=== PATIENT | female | born 1960 | race Two or more races ===

== ENCOUNTER 2020-06-12 10:15 | Emergency (ER) | payer MEDICAID ==
[~2020-06-12] VITALS: Ht 170.2 cm; Wt 95.3 kg
[~2020-06-12 10:15] MED LIST: ESOM40CA PO
--- NOTE | 2020-06-12 10:53 | NUR ---
Dr Valente seen and examined the pt.
[2020-06-12] MEDS ORDERED: IV NORMAL SALINE 1000 ML BAG IV ONE (11:00)
[2020-06-12] MEDS ORDERED: ONDANSETRON 4 MG/2 ML VIAL ONE (11:16)
[2020-06-12 11:17] LABS: BASOPHILS % (AUTO) 0.2 % (0.0-2.0); HEMATOCRIT 49.4 % (31.2-41.9); HEMOGLOBIN 16.8 g/dL (10.9-14.3); LYMPHOCYTES # (AUTO) 0.6 K/uL (20.0-40.0); LYMPHOCYTES % (AUTO) 4.8 % (20.5-51.5); MEAN CORPUSCULAR HEMOGLOBIN 28.2 uug (24.7-32.8); MEAN CORPUSCULAR HGB CONC 34 g/dL (32.3-35.6); MEAN CORPUSCULAR VOLUME 82.8 fL (75.5-95.3); MONOCYTES # (AUTO) 0.9 K/uL (2.0-10.0); MONOCYTES % (AUTO) 7.9 % (0.0-11.0); NEUTROPHILS # (AUTO) 10.1 K/uL (1.8-8.9); NEUTROPHILS % (AUTO) 87.1 % (38.5-71.5); PLATELET COUNT (AUTO) 287 K/uL (179-408); RED BLOOD CELL COUNT(AUTO) 5.96 MIL/uL (3.63-4.92); WHITE BLOOD COUNT (AUTO) 11.6 K/uL (3.8-11.8)
[2020-06-12] MEDS ORDERED: IV NORMAL SALINE 250 ML IV ONE (11:17)
[2020-06-12] MEDS ORDERED: IOHEXOL 300MG/ML 100 ML INFUS..BTL ONE (11:17)
[2020-06-12] MEDS ORDERED: SWABABLE VALVE TRANSFER SET EA MC ONE (11:17)
[2020-06-12 11:24] LABS: CARBON DIOXIDE 27 mmol/L (21-32); CHLORIDE 106 mmol/L (98-107); CREATININE 1.4 mg/dL (0.6-1.3); GLUCOSE 173 mg/dL (74-106); POTASSIUM 4.1 mmol/L (3.5-5.1); UREA NITROGEN, BLOOD 23 mg/dL (7-18)
[2020-06-12 11:30] LABS: ALANINE AMINOTRANSFERASE 32 U/L (14-59); ALKALINE PHOSPHATASE 108 U/L (50-136); ASPARTATE AMINOTRANSFERASE 20 U/L (15-37); BILIRUBIN,DIRECT 0.2 mg/dL (0.0-0.2); BILIRUBIN,TOTAL 1.3 mg/dL (0.2-1.0); LIPASE 66 U/L (73-393)
[2020-06-12] MEDS ORDERED: ONDANSETRON 4 MG/2 ML VIAL IV ONE (11:45)
--- NOTE | 2020-06-12 13:04 | NUR ---
Pt able to tolorate fluids. Pt states no longer has nausea.
--- NOTE | 2020-06-12 14:12 | NUR ---
Pt able to tolorate PO intake, denies N/V.
[2020-06-12] MEDS ORDERED: IPRATROPIUM BROMIDE 0.5 MG/2.5 ML NEBU NEB ONE (14:15)
[2020-06-12] MEDS ORDERED: ALBUTEROL SULFATE 2.5 MG/3 ML NEBU NEB ONE (14:15)
--- NOTE | 2020-06-12 14:35 | NUR ---
RT at bedside for bxtx.
[2020-06-12] MEDS ORDERED: ALBUTEROL SULFATE 2.5 MG/3 ML NEBU ONE (14:39)
[2020-06-12] MEDS ORDERED: IPRATROPIUM BROMIDE 0.5 MG/2.5 ML NEBU ONE (14:39)
--- NOTE | 2020-06-12 14:53 | NUR ---
Patient discharged to home in stable condition. Written and verbal after care instructions given. Patient verbalizes understanding of instructions. Stressed follow up or return to ER for worsening s/s. IV removed. Catheter intact and site benign. Pressure and 4x4 gauze applied to site. No bleeding noted.
[2020-06-12 14:54] VITALS: BP 132/79
== END 2020-06-12 15:04 | disposition home or self-care (01) ==
LOC: ER 10:15
DX: A04.9 Bacterial intestinal infection, unspecified (principal); J44.9 Chronic obstructive pulmonary disease, unspecified; Z90.49 Acquired absence of other specified parts of digestive tract; K57.30 Diverticulosis of large intestine without perforation or abscess without bleeding; E66.9 Obesity, unspecified; Z68.32 Body mass index [BMI] 32.0-32.9, adult; G62.9 Polyneuropathy, unspecified; Z88.6 Allergy status to analgesic agent; Z88.5 Allergy status to narcotic agent; Z88.0 Allergy status to penicillin; Z88.2 Allergy status to sulfonamides; R00.0 Tachycardia, unspecified; K21.9 Gastro-esophageal reflux disease without esophagitis; K44.9 Diaphragmatic hernia without obstruction or gangrene
CPT/HCPCS: 71045; 74177; 80048; 80076; 82140; 83690; 84484; 85025; 85730; 93005; 94640; 96361; 96374; 99285; J2405; Q9967; 36415; 70030-TC; A4663; J3590; J7030; J7050

== ENCOUNTER 2021-02-15 09:27 | Emergency (ER) | payer MEDICAID ==
[~2021-02-15] VITALS: Ht 170.2 cm; Wt 117.0 kg
--- NOTE | 2021-02-15 10:50 | NUR ---
Patient discharged to home in stable condition. Written and verbal after care instructions given. Patient verbalizes understanding of instructions. Stressed follow up or return to ER for worsening s/s.pt using crutches, walks in steady gait.
== END 2021-02-15 10:51 | disposition home or self-care (01) ==
LOC: ER 09:28
DX: M25.562 Pain in left knee (principal); S89.92XA Unspecified injury of left lower leg, initial encounter; W19.XXXA Unspecified fall, initial encounter; Y92.89 Other specified places as the place of occurrence of the external cause; Z88.6 Allergy status to analgesic agent; Z88.1 Allergy status to other antibiotic agents; Z88.5 Allergy status to narcotic agent; Z88.0 Allergy status to penicillin; Z88.2 Allergy status to sulfonamides; E66.9 Obesity, unspecified; Z68.41 Body mass index [BMI] 40.0-44.9, adult; J44.9 Chronic obstructive pulmonary disease, unspecified; G62.9 Polyneuropathy, unspecified
CPT/HCPCS: A4663

== ENCOUNTER 2021-03-31 12:17 | Emergency (ER) | payer MEDICAID ==
[~2021-03-31] VITALS: Ht 170.2 cm; Wt 126.1 kg
--- NOTE | 2021-03-31 12:56 | NUR ---
[email or web address], medical screening exam in progress
[2021-03-31] MEDS ORDERED: IPRATROPIUM BROMIDE 0.5 MG/2.5 ML NEBU NEB ONE (13:00)
[2021-03-31] MEDS ORDERED: ALBUTEROL SULFATE 2.5 MG/3 ML NEBU NEB ONE (13:00)
[2021-03-31] MEDS ORDERED: ACETAMINOPHEN 325 MG TABLET PO ONE (13:00)
[2021-03-31] MEDS ORDERED: ACETAMINOPHEN 325 MG TABLET ONE (13:23)
--- NOTE | 2021-03-31 13:56 | NUR ---
For discharge, pending discharge papers from MD@this time.
--- NOTE | 2021-03-31 14:10 | NUR ---
Patient discharged to home in stable condition with steady gait. Written and verbal after care instructions given.Patient verbalized understanding & compliance of instructions. Stressed follow up with primary doctor or return to ER for worsening s/s. PATIENT IS PAIN FREE AT THIS TIME.
[2021-03-31] MEDS ORDERED: NEOMY/BACITRA/POLYMYXIN B OINT UD PACKET TP ONE ×2 (14:11→14:15)
== END 2021-03-31 14:11 | disposition home or self-care (01) ==
LOC: ER 12:18
DX: R07.89 Other chest pain (principal); S20.01XA Contusion of right breast, initial encounter; W22.8XXA Striking against or struck by other objects, initial encounter; Y92.89 Other specified places as the place of occurrence of the external cause; E66.9 Obesity, unspecified; Z68.41 Body mass index [BMI] 40.0-44.9, adult; J44.9 Chronic obstructive pulmonary disease, unspecified; G62.9 Polyneuropathy, unspecified; Z88.5 Allergy status to narcotic agent; Z88.0 Allergy status to penicillin; Z88.2 Allergy status to sulfonamides; R03.0 Elevated blood-pressure reading, without diagnosis of hypertension
CPT/HCPCS: 71045; 93005; 94640; A4663

== ENCOUNTER 2021-06-11 11:55 | Emergency (ER) | payer MEDICAID ==
[~2021-06-11] VITALS: Ht 170.2 cm; Wt 126.1 kg
[2021-06-11] MEDS ORDERED: IV NORMAL SALINE 1000 ML BAG IV ONE (13:00)
[2021-06-11] MEDS ORDERED: ONDANSETRON 4 MG/2 ML VIAL IV ONE (13:00)
[2021-06-11 13:19] LABS: HEMATOCRIT 43.4 % (31.2-41.9); MEAN CORPUSCULAR HEMOGLOBIN 27.9 uug (24.7-32.8); MEAN CORPUSCULAR VOLUME 82.4 fL (75.5-95.3); PLATELET COUNT (AUTO) 253 K/uL (179-408)
[2021-06-11] MEDS ORDERED: ONDANSETRON 4 MG/2 ML VIAL ONE (13:24)
[2021-06-11 13:32] LABS: BILIRUBIN,DIRECT 0.1 mg/dL (0.0-0.2); BILIRUBIN,TOTAL 0.5 mg/dL (0.2-1.0); CREATININE 0.9 mg/dL (0.6-1.3); TOTAL PROTEIN, SERUM 6.9 g/dL (6.4-8.2)
--- NOTE | 2021-06-11 13:51 | NUR ---
Pt denies any adverse reaction from medication. States improvement with nausea.
[2021-06-11] MEDS ORDERED: ALBUTEROL SULFATE 2.5 MG/3 ML NEBU NEB ONE (14:00)
[2021-06-11] MEDS ORDERED: ALBUTEROL SULFATE 2.5 MG/3 ML NEBU ONE (14:17)
[2021-06-11] MEDS ORDERED: ONDA4TAB5 PO (14:59)
--- NOTE | 2021-06-11 15:02 | NUR ---
Pt states improvement in S/S from CC. VSS
--- NOTE | 2021-06-11 15:12 | NUR ---
Saline lock D/C, clear and intact. Patient discharged to home in stable condition. Written and verbal after care instructions given. Patient verbalizes understanding of instructions. Stressed follow up or return to ER for worsening s/s.
[2021-06-11 15:15] VITALS: BP 146/79
== END 2021-06-11 15:12 | disposition home or self-care (01) ==
LOC: ER 11:57
DX: K21.00 Gastro-esophageal reflux disease with esophagitis, without bleeding (principal); G62.9 Polyneuropathy, unspecified; E66.9 Obesity, unspecified; Z68.41 Body mass index [BMI] 40.0-44.9, adult; J44.9 Chronic obstructive pulmonary disease, unspecified; K50.90 Crohn's disease, unspecified, without complications; Z90.49 Acquired absence of other specified parts of digestive tract
CPT/HCPCS: 36415; 80048; 80076; 83690; 84484; 85025; 93005; 94640; 96361; 96374; 99284; J2405; 70030-TC; A4663; J7030

== ENCOUNTER 2021-12-01 13:52 | Emergency (ER) | payer MEDICAID ==
[~2021-12-01] VITALS: Ht 170.2 cm; Wt 117.0 kg
[~2021-12-01 13:52] MED LIST changes: +ONDA4TAB5 PO
[2021-12-01] MEDS ORDERED: ALBUTEROL SULFATE 2.5 MG/3 ML NEBU NEB ONE (16:15)
[2021-12-01] MEDS ORDERED: ALBUTEROL SULFATE 2.5 MG/3 ML NEBU ONE (16:17)
[2021-12-01 16:20] LABS: ALANINE AMINOTRANSFERASE 30 U/L (14-59); ALKALINE PHOSPHATASE 100 U/L (50-136); ASPARTATE AMINOTRANSFERASE 18 U/L (15-37); BILIRUBIN,DIRECT 0.1 mg/dL (0.0-0.2); BILIRUBIN,TOTAL 0.5 mg/dL (0.2-1.0); CARBON DIOXIDE 27 mmol/L (21-32); CHLORIDE 105 mmol/L (98-107); CREATININE 0.8 mg/dL (0.6-1.3); GLUCOSE 116 mg/dL (74-106); POTASSIUM 4.5 mmol/L (3.5-5.1); UREA NITROGEN, BLOOD 13 mg/dL (7-18)
[2021-12-01 16:49] VITALS: BP 126/80
== END 2021-12-01 16:49 | disposition home or self-care (01) ==
LOC: ER 13:54
DX: S40.011A Contusion of right shoulder, initial encounter (principal); S20.219A Contusion of unspecified front wall of thorax, initial encounter; W01.0XXA Fall on same level from slipping, tripping and stumbling without subsequent striking against object, initial encounter; Y92.89 Other specified places as the place of occurrence of the external cause; M23.91 Unspecified internal derangement of right knee; S89.91XA Unspecified injury of right lower leg, initial encounter; Z90.49 Acquired absence of other specified parts of digestive tract; K44.9 Diaphragmatic hernia without obstruction or gangrene; J44.9 Chronic obstructive pulmonary disease, unspecified; G62.9 Polyneuropathy, unspecified; K21.9 Gastro-esophageal reflux disease without esophagitis; E66.9 Obesity, unspecified; Z68.41 Body mass index [BMI] 40.0-44.9, adult; Z88.6 Allergy status to analgesic agent; Z88.0 Allergy status to penicillin; Z88.2 Allergy status to sulfonamides; Z88.8 Allergy status to other drugs, medicaments and biological substances
CPT/HCPCS: 36415; 71250; 73030; 84484; 85730; 86803; 87806; 93005; A4663

== ENCOUNTER 2022-02-09 16:55 | Emergency (ER) | payer MEDICAID ==
[~2022-02-09] VITALS: Ht 172.7 cm; Wt 117.9 kg
[2022-02-09] MEDS ORDERED: IV NORMAL SALINE 1000 ML BAG IV ONE (18:00)
[2022-02-09] MEDS ORDERED: DEXAMETHASONE SOD PHOSPHATE 4 MG INJ IV ONE (18:00)
[2022-02-09 18:54] LABS: HEMATOCRIT 44.1 % (31.2-41.9); MEAN CORPUSCULAR HEMOGLOBIN 27.6 uug (24.7-32.8); MEAN CORPUSCULAR VOLUME 82.5 fL (75.5-95.3); PLATELET COUNT (AUTO) 245 K/uL (179-408)
[2022-02-09 19:04] LABS: ALANINE AMINOTRANSFERASE 28 U/L (14-59); ALKALINE PHOSPHATASE 101 U/L (50-136); ASPARTATE AMINOTRANSFERASE 6 U/L (15-37); BILIRUBIN,DIRECT 0.1 mg/dL (0.0-0.2); BILIRUBIN,TOTAL 0.5 mg/dL (0.2-1.0); CARBON DIOXIDE 29 mmol/L (21-32); CHLORIDE 102 mmol/L (98-107); GLUCOSE 111 mg/dL (74-106); POTASSIUM 3.8 mmol/L (3.5-5.1); TOTAL PROTEIN, SERUM 7.1 g/dL (6.4-8.2); UREA NITROGEN, BLOOD 17 mg/dL (7-18)
[2022-02-09] MEDS ORDERED: DEXAMETHASONE SOD PHOSPHATE 10 MG INJ ONE (19:28)
--- NOTE | 2022-02-09 19:30 | NUR ---
Assumed care of patient from day shift nurse.
[2022-02-09] MEDS ORDERED: TRAMADOL PO (19:48)
--- NOTE | 2022-02-09 20:10 | NUR ---
Dr. Grimm at bedside.
[2022-02-09] MEDS ORDERED: TRAM50TA2 PO (20:24)
[2022-02-09] MEDS ORDERED: TRAMADOL HCL 50 MG TABLET ONE (20:36)
--- NOTE | 2022-02-09 20:40 | NUR ---
Patient discharged to home in stable condition. Written and verbal after care instructions given. Patient verbalizes understanding of instructions. Stressed follow up or return to ER for worsening s/s. Patient ambulated from the ER with steady gait. All belongings with patient.
[2022-02-09 21:33] VITALS: BP 148/74
[2022-02-09] MEDS ORDERED: TRAMADOL HCL 50 MG TABLET PO ONE (22:00)
== END 2022-02-09 20:40 | disposition home or self-care (01) ==
LOC: ER 16:55
DX: L56.2 Photocontact dermatitis [berloque dermatitis] (principal); Z88.0 Allergy status to penicillin; Z88.2 Allergy status to sulfonamides; Z88.8 Allergy status to other drugs, medicaments and biological substances; E66.01 Morbid (severe) obesity due to excess calories; Z68.39 Body mass index [BMI] 39.0-39.9, adult; G62.9 Polyneuropathy, unspecified; J44.9 Chronic obstructive pulmonary disease, unspecified; Z87.891 Personal history of nicotine dependence; G89.29 Other chronic pain; M54.9 Dorsalgia, unspecified
CPT/HCPCS: 36415; 71045; 80048; 80076; 82607; 83605; 83735; 84145; 84484; 85025; 85730; 87040 ×2; 93005; 96361; 96374; 99285; J1100; J7040; A4663

== ENCOUNTER 2022-02-14 21:37 | Inpatient (IN) | payer MEDICAID ==
[~2022-02-14] VITALS: Ht 170.2 cm; Wt 117.9 kg
[~2022-02-14 21:37] MED LIST changes: +TRAM50TA2 PO; +TRAMADOL PO
--- NOTE | 2022-02-14 21:50 | NUR ---
pt c/o generalized skin rash was seen here on february 09 with same coomplaint.
[2022-02-14] MEDS ORDERED: HYDROMORPHONE HCL 2 MG TABLET PO ONE (22:00)
[2022-02-14] MEDS ORDERED: ONDANSETRON ODT 4 MG TAB.RAPDIS SL ONE (22:00)
[2022-02-14] MEDS ORDERED: ONDANSETRON ODT 4 MG TAB.RAPDIS ONE (22:13)
[2022-02-14] MEDS ORDERED: TRIA15CR2 TP (22:13)
[2022-02-14] MEDS ORDERED: CIPR-262 PO (22:13)
[2022-02-14] MEDS ORDERED: lidocaine TOP (22:13)
[2022-02-14] MEDS ORDERED: PRED20TA PO (22:13)
[2022-02-14] MEDS ORDERED: HYDROMORPHONE HCL 2 MG TABLET ONE (22:13)
--- NOTE | 2022-02-14 22:17 | NUR ---
epic panel doctor was called and Dr. Carreno has spoken with Bhavesh Montenegro.
--- NOTE | 2022-02-14 22:25 | NUR ---
Dr. Carreno states pt will be admitted, he states it is ok for no iv access pt has poor venous access. Call placed to Bhavesh Montenegro to inform of this and determine if he wants to have a midline placed.
[2022-02-14 22:49] LABS: HEMATOCRIT 43.9 % (31.2-41.9); MEAN CORPUSCULAR HEMOGLOBIN 27.8 uug (24.7-32.8); MEAN CORPUSCULAR VOLUME 82.9 fL (75.5-95.3); PLATELET COUNT (AUTO) 258 K/uL (179-408)
[2022-02-14 22:52] LABS: POTASSIUM 4.1 mmol/L (3.5-5.1)
[2022-02-14 22:58] LABS: BILIRUBIN,TOTAL 0.9 mg/dL (0.2-1.0); TOTAL PROTEIN, SERUM 7.2 g/dL (6.4-8.2)
--- NOTE | 2022-02-14 23:07 | NUR ---
spoke with Bhavesh Montenegro he is aware that the pt does not have an iv access and is difficult to find venous access he is ok without iv access and states will order for midline tomorrow.
[2022-02-14] MEDS ORDERED: MAGNESIUM HYDROXIDE 30 ML LIQUID UDC PO PRN (23:30)
[2022-02-14] MEDS ORDERED: methylPREDNISolone SOD SUCC 125 MG/2 ML VIAL IM ONE (23:30)
[2022-02-14] MEDS ORDERED: REMEDY ESSENTIAL ZINC PASTE 113 GM TP PRN (23:30)
--- NOTE | 2022-02-14 23:47 | NUR ---
housekeeping director is made aware that the pt is waiting for a bed, I would be told if one is available.
--- NOTE | 2022-02-15 01:28 | NUR ---
report given to Shereen MARIA.
[2022-02-15 02:11] VITALS: BP 152/96
--- NOTE | 2022-02-15 02:17 | NUR ---
pt transported to room 329a via [facility] with all belongings CANDACE Regan at bedside to receive the pt.
[2022-02-15] MEDS ORDERED: methylPREDNISolone SOD SUCC 125 MG/2 ML VIAL IM ONE (03:00)
--- NOTE | 2022-02-15 03:00 | NUR ---
Received medsurg pt from ER via [facility] accompanied by CANDACE Frias. She is alert and oriented x4, able to make needs known, BRP but noted unsteady. Per report, no IV access d/t poor venous access. Dr. Carreno and Crow, HOOK TENDER aware. Initial and full body assessment done with pictures taken and placed in chart. Personal prescriptions put in a sealed bag signed by pt and will be given to pharmacy. All needs attended. Call light placed within reach, oriented to room. Safety precautions observed. Will continue to monitor.
[2022-02-15 04:43] VITALS: BP 148/90
[2022-02-15 06:31] VITALS: BP 139/84
--- NOTE | 2022-02-15 06:32 | NUR ---
No significant changes noted. All needs attended. Call light placed within reach. Will endorse to next shift for continuity of care.
[2022-02-15 06:49] LABS: MEAN CORPUSCULAR HEMOGLOBIN 27.9 uug (24.7-32.8); MEAN CORPUSCULAR VOLUME 82.2 fL (75.5-95.3); PLATELET COUNT (AUTO) 215 K/uL (179-408)
[2022-02-15 07:16] LABS: PHOSPHOROUS 2.5 mg/dL (2.5-4.9); POTASSIUM 4.4 mmol/L (3.5-5.1)
--- NOTE | 2022-02-15 08:54 | NUR ---
WOUND CARE CONSULT: PT PRESENTS WITH VERY DRY, RED SKIN CONDITION TO BILATERAL UPPER AND LOWER EXTREMITIES WELL SLIGHT REDNESS TO RT AND LEFT UPPER ABDOMINAL AREAS, PRESENT ON ADMISSION. NO DRAINAGE NOTED. PT REPORTS SKIN FEELING VERY TIGHT AND DRY. RECOMMENDATIONS MADE FOR SKIN PROTECTION. DISCUSSED WITH NURSING STAFF. MD IN AGREEMENT WITH PLAN OF CARE.
[2022-02-15] MEDS ORDERED: ESOM40CA PO (08:56)
[2022-02-15] MEDS ORDERED: TEMA30CA PO (08:56)
[2022-02-15] MEDS: MINERAL OIL/PETROLATUM,WHITE 57 GM TUBE TOP SCH (10:52)
[2022-02-15 11:57] VITALS: BP 148/82
[2022-02-15 16:02] VITALS: BP 148/83
[2022-02-15] MEDS: NEXIUM 40MG CAPSULE PO SCH (17:53)
--- NOTE | 2022-02-15 19:30 | NUR ---
Pt awake,alert and orientedx4. Pt in no acute distress. Pt have no iv access. Maria CROSSING FLAGMAN aware. Safety and comfort provided. Will continue to monitor.
[2022-02-15 20:24] VITALS: BP 148/85
[2022-02-16 04:27] VITALS: BP 125/70
[2022-02-16] MEDS: NEXIUM 40MG CAPSULE PO SCH (06:34)
--- NOTE | 2022-02-16 06:43 | NUR ---
Pt in no acute distress. Prescribed medication given and pt tolerated it well. Pt stable. Pt vital signs stable.Pt can make her needs known. Pt request to talk with [facility] [employer] [facility]. RN Called [facility] to come to her room. Will endorse to incoming nurse for continuity of care.
[2022-02-16] MEDS: MINERAL OIL/PETROLATUM,WHITE 57 GM TUBE TOP SCH (09:49)
[2022-02-16 11:55] VITALS: BP 145/80
[2022-02-16] MEDS ORDERED: MINE454C11 TOP (13:32)
[2022-02-16 16:17] VITALS: BP 141/76
--- NOTE | 2022-02-16 18:20 | NUR ---
Pt is discharged home. Was picked up by friend in private car. All discharge education given to pt, all personal belongings at hand. Returned all home medications to patient. Educated to follow up with PCP and assistant press operator. No IV access, ID band removed. Wound care completed, no signs of acute distress. Pt was wheeled down.
== END 2022-02-16 18:20 | disposition home or self-care (01) | DRG 385 ==
LOC: ER 21:37 → MEDSURG3 23:59
PROVIDERS: ADMIT Nurse Practitioner Acute Care; ATTEND Nurse Practitioner Acute Care
DX: L30.9 Dermatitis, unspecified (principal); E66.2 Morbid (severe) obesity with alveolar hypoventilation; F32.A Depression, unspecified; Z68.41 Body mass index [BMI] 40.0-44.9, adult; Z88.0 Allergy status to penicillin; Z88.2 Allergy status to sulfonamides; F41.9 Anxiety disorder, unspecified; G62.9 Polyneuropathy, unspecified; J44.9 Chronic obstructive pulmonary disease, unspecified; K21.9 Gastro-esophageal reflux disease without esophagitis; M54.12 Radiculopathy, cervical region; Z87.891 Personal history of nicotine dependence; M54.30 Sciatica, unspecified side; G89.4 Chronic pain syndrome; Z20.822 Contact with and (suspected) exposure to COVID-19
CPT/HCPCS: 36415; 83735; 84100; 85025; A4663; G0378; J2930; Q0162

== ENCOUNTER 2022-06-02 16:48 | Inpatient (IN) | payer MEDICAID ==
[~2022-06-02] VITALS: Ht 170.2 cm; Wt 115.7 kg
[~2022-06-02 16:48] MED LIST changes: +MINE454C11 TOP; -ONDA4TAB5 PO; +PRED20TA PO; +TEMA30CA PO; -TRAM50TA2 PO; -TRAMADOL PO
--- NOTE | 2022-06-02 17:15 | NUR ---
patient roomed, resting comfortably in bed and waiting for MD.
[2022-06-02] MEDS ORDERED: methylPREDNISolone SOD SUCC 125 MG/2 ML VIAL ONE (17:29)
[2022-06-02] MEDS ORDERED: methylPREDNISolone SOD SUCC 125 MG/2 ML VIAL IV ONE (17:30)
[2022-06-02 18:11] LABS: HEMATOCRIT 44.1 % (31.2-41.9); MEAN CORPUSCULAR HEMOGLOBIN 28.6 uug (24.7-32.8); MEAN CORPUSCULAR VOLUME 82.7 fL (75.5-95.3); PLATELET COUNT (AUTO) 262 K/uL (179-408)
[2022-06-02 18:17] LABS: CREATININE 1.1 mg/dL (0.6-1.3); POTASSIUM 3.9 mmol/L (3.5-5.1)
--- NOTE | 2022-06-02 18:41 | NUR ---
pt to be admitted to [facility] for rash, accepting MD Almaraz. no bed available at this time.
[2022-06-02 22:07] VITALS: BP 152/88
[2022-06-02] MEDS ORDERED: REMEDY ESSENTIAL ZINC PASTE 113 GM TP PRN (23:15)
[2022-06-02] MEDS ORDERED: ONDANSETRON 4 MG/2 ML VIAL IV PRN (23:15)
[2022-06-02] MEDS ORDERED: HYDROCODONE/APAP 10-325 MG TABLET PO PRN (23:15)
[2022-06-03] MEDS ORDERED: VANCOMYCIN IV 2,000 MG in IV DEXTROSE 5% 500 ML IV ONE (00:30)
--- NOTE | 2022-06-03 01:39 | NUR ---
Patient admitted to room 318 via ER per [facility] with diagnosis of Cellulitis bilateral lower extremities and wound color redness. AAOx4, no sob, no c/o pain noted.
[2022-06-03] MEDS ORDERED: VANCOMYCIN 1000 MG VIAL ONE ×2 (02:09→04:30)
[2022-06-03 04:00] VITALS: BP 149/78
[2022-06-03] MEDS ORDERED: VANCOMYCIN IV 200 ML ONE (04:30)
[2022-06-03] MEDS: methylPREDNISolone SOD SUCC 125 MG/2 ML VIAL IV SCH ×2 (05:08→15:01)
[2022-06-03] MEDS ORDERED: PANTOPRAZOLE SODIUM 40 MG TABLET.DR PO SCH (07:00)
[2022-06-03 07:15] LABS: HEMATOCRIT 44.6 % (31.2-41.9); MEAN CORPUSCULAR HEMOGLOBIN 28.5 uug (24.7-32.8); MEAN CORPUSCULAR VOLUME 83.7 fL (75.5-95.3); PLATELET COUNT (AUTO) 262 K/uL (179-408)
[2022-06-03 07:29] LABS: BILIRUBIN,TOTAL 0.6 mg/dL (0.2-1.0); MAGNESIUM 2.3 mg/dL (1.8-2.4); PHOSPHOROUS 3.7 mg/dL (2.5-4.9); POTASSIUM 4.2 mmol/L (3.5-5.1); TOTAL PROTEIN, SERUM 7.4 g/dL (6.4-8.2)
[2022-06-03] MEDS: ACETAMINOPHEN 325 MG TABLET PO PRN ×2 (08:00→19:20)
[2022-06-03] MEDS ORDERED: CLOTRIMAZOLE 1% CREAM 30 GM TUBE TOP SCH (09:00)
[2022-06-03] MEDS: TRAMADOL HCL 50 MG TABLET PO PRN (12:00)
--- NOTE | 2022-06-03 13:00 | NUR ---
Dr Tee here to see patient. New orders received and carried out.
[2022-06-03] MEDS ORDERED: KETOROLAC TROMETHAMINE 30 MG INJ IVP PRN (13:15)
[2022-06-03] MEDS ORDERED: LIDOCAINE HCL 1% 20 ML VIAL IJ PRN (13:15)
[2022-06-03] MEDS ORDERED: MICAFUNGIN SODIUM 100 MG in IV NORMAL SALINE 100 ML IV SCH (14:00)
[2022-06-03] MEDS: FLUCONAZOLE 200 MG/NS 100ML IV 200 MG in PREMIXED 1 EACH IV SCH ×3 (15:00→20:42)
--- NOTE | 2022-06-03 15:00 | NUR ---
Pt refused to have her IV restarted. Pt refused abx and solumedrol.
[2022-06-03] MEDS: ENOXAPARIN SODIUM 40 MG/0.4 ML DISP.SYRIN SQ SCH (15:04)
[2022-06-03] MEDS: DOXYCYCLINE HYCLATE 100 MG TABLET PO SCH ×2 (15:06→20:08)
[2022-06-03] MEDS: KETOCONAZOLE 2% CREAM 30 GM TUBE TP SCH (15:09)
[2022-06-03 16:04] VITALS: BP 158/89
--- NOTE | 2022-06-03 16:19 | NUR ---
Pt continue to refused IV restarted. Explained to patient why we need an IV restarted for her abx.
--- NOTE | 2022-06-03 18:06 | NUR ---
Pt continues to prolong IV reinsertion. I dont want you guys to start my IV MY ARM is all bruised up. Pt has a very demeaning aggressive attitude Explained to pt that theres abx to be given. Spoke with pharmacy to change time of abx diflucan as to when IV can be restarted.
[2022-06-03 20:00] VITALS: BP 150/87
[2022-06-03] MEDS ORDERED: VANCOMYCIN IV 1,500 MG in IV DEXTROSE 5% 500 ML IV SCH (20:00)
--- NOTE | 2022-06-03 21:48 | NUR ---
Patient in bed at this time and AAOx4, refused IV access so reported to Shalonda Castro
[2022-06-03] MEDS: PANTOPRAZOLE SODIUM 40 MG TABLET.DR PO SCH (23:48)
[2022-06-04] VITALS: BP 109/58
[2022-06-04 04:00] VITALS: BP 151/87
[2022-06-04] MEDS: PANTOPRAZOLE SODIUM 40 MG TABLET.DR PO SCH (06:02)
[2022-06-04] MEDS ORDERED: PANTOPRAZOLE SODIUM 40 MG TABLET.DR PO SCH (07:00)
[2022-06-04] MEDS: ENOXAPARIN SODIUM 40 MG/0.4 ML DISP.SYRIN SQ SCH (08:54)
[2022-06-04] MEDS: KETOCONAZOLE 2% CREAM 30 GM TUBE TP SCH (08:54)
[2022-06-04] MEDS: DOXYCYCLINE HYCLATE 100 MG TABLET PO SCH ×2 (08:55→21:09)
[2022-06-04] MEDS: TRAMADOL HCL 50 MG TABLET PO PRN (08:56)
[2022-06-04 12:00] VITALS: BP 148/108
[2022-06-04] MEDS: FLUCONAZOLE 200 MG/NS 100ML IV 200 MG in PREMIXED 1 EACH IV SCH (12:00)
[2022-06-04] MEDS: FLUCONAZOLE 200 MG TABLET PO SCH (13:25)
--- NOTE | 2022-06-04 14:30 | NUR ---
Urine collected. Urine specimen sent to lab.
[2022-06-04 15:56] LABS: *BILIRUBIN,URIN NEGATIVE (NEGATIVE); *BLOOD, URINE NEGATIVE (NEGATIVE); *CLARITY,URINE CLEAR (CLEAR); *COLOR,URINE YELLOW (YELLOW); *KETONES,URINE NEGATIVE (NEGATIVE); *UROBILINOGEN,URINE 0.2 E.U./dl (NORMAL); LEUKOCYTE ESTERASE ,URINE 1+ (NEGATIVE); NITRITE, URINE NEGATIVE (NEGATIVE); UGLUCOSE NEGATIVE (NEGATIVE)
[2022-06-04 16:00] VITALS: BP 150/67
[2022-06-04] MEDS: ACETAMINOPHEN 325 MG TABLET PO PRN (18:30)
[2022-06-04] MEDS ORDERED: TRAMADOL HCL 50 MG TABLET PO PRN (19:15)
[2022-06-04 20:00] VITALS: BP 143/93
[2022-06-04 20:57] LABS: BACTERIA,URINE FEW /HPF (NONE SEEN); CALCIUM OXALATE CRYSTALS,UR FEW /HPF (NONE SEEN); SQUAMOUS EPITHELIAL CELL,UR MANY /HPF (NONE SEEN)
[2022-06-05 04:00] VITALS: BP 145/72
[2022-06-05] MEDS: PANTOPRAZOLE SODIUM 40 MG TABLET.DR PO SCH (06:39)
--- NOTE | 2022-06-05 07:18 | NUR ---
sHIFT NOTE: PT IS ALERT AND ORIENTED X4 PT TOOK MEDICATION WITHOUT DIFFICULTY NO SIGNS OF ADVERSE REACTION FROM MEDICATION. PT REFUSED AM LAB AND SLEPT MOST THE NIGHT . [facility] IS SCHEDULED FOR DISCHARGED THIS AM WILL ENDORSE TO AM NURSE.
--- NOTE | 2022-06-05 08:14 | NUR ---
Awake, alert, oriented x 4. BLE redness noted. Denies pain at this time
[2022-06-05] MEDS: FLUCONAZOLE 200 MG TABLET PO SCH (08:30)
[2022-06-05] MEDS: DOXYCYCLINE HYCLATE 100 MG TABLET PO SCH (08:30)
[2022-06-05] MEDS: ENOXAPARIN SODIUM 40 MG/0.4 ML DISP.SYRIN SQ SCH (08:31)
[2022-06-05] MEDS: KETOCONAZOLE 2% CREAM 30 GM TUBE TP SCH (08:31)
[2022-06-05] MEDS: ACETAMINOPHEN 325 MG TABLET PO PRN (08:31)
--- NOTE | 2022-06-05 10:24 | NUR ---
WOUND CARE CONSULT: PT PRESENTS WITH PEELING SKIN ON ARMS WITH REDNESS AND IRRITATED SKIN TO LOWER LEGS, PRESENT ON ADMISSION. DR PALMER CALLED FOR DPM CONSULT. PT IS AMBULATORY. RECOMMENDATIONS MADE FOR DRY SKIN ON ARMS. PT IS AMBULATORY AND CONTINENT. MD IN AGREEMENT WITH PLAN OF CARE.
[2022-06-05] MEDS ORDERED: VITAMINS A AND D OINT TP SCH (10:30)
[2022-06-05] MEDS ORDERED: ENOX40DI SQ (11:51)
[2022-06-05] MEDS ORDERED: TRAM50TA2 PO (11:51)
[2022-06-05] MEDS ORDERED: KETO15CR2 TP (11:51)
[2022-06-05] MEDS ORDERED: FLUC200T PO (11:51)
[2022-06-05] MEDS ORDERED: DOXY100T2 PO (11:51)
[2022-06-05 12:00] VITALS: BP 143/73
--- NOTE | 2022-06-05 15:34 | NUR ---
With discharge order to home. No saline lock. Prescription and DC instruction given to patient, verbalized understanding. Went home per wheelchair in fair condition, not in distress, afebrile.
== END 2022-06-05 15:30 | disposition home or self-care (01) | DRG 383 ==
LOC: ER 16:51 → MEDSURG3 20:50
PROVIDERS: ADMIT Nurse Practitioner Acute Care; ATTEND Registered Nurse
PROC: 0HBLXZX Excision of Left Lower Leg Skin, External Approach, Diagnostic (ICD-10-PCS; principal; 2022-06-04)
DX: L03.116 Cellulitis of left lower limb (principal); K76.0 Fatty (change of) liver, not elsewhere classified; B36.9 Superficial mycosis, unspecified; E66.01 Morbid (severe) obesity due to excess calories; J44.9 Chronic obstructive pulmonary disease, unspecified; G62.9 Polyneuropathy, unspecified; L03.115 Cellulitis of right lower limb; Z68.39 Body mass index [BMI] 39.0-39.9, adult; Z20.822 Contact with and (suspected) exposure to COVID-19; Z87.891 Personal history of nicotine dependence; Z91.199 Patient's noncompliance with other medical treatment and regimen due to unspecified reason; Z87.440 Personal history of urinary (tract) infections; R73.03 Prediabetes; K21.9 Gastro-esophageal reflux disease without esophagitis
CPT/HCPCS: 36415; 83605; 83735; 84100; 85025; 85651; 87086; A4663; G0378; J1450; J1650; J2930; J3370; J3490; J7060

== ENCOUNTER 2022-06-12 22:54 | Emergency (ER) | payer MEDICAID ==
[~2022-06-12] VITALS: Ht 170.2 cm; Wt 116.1 kg
[~2022-06-12 22:54] MED LIST changes: +DOXY100T2 PO; +ENOX40DI SQ; +FLUC200T PO; +KETO15CR2 TP; -MINE454C11 TOP; -PRED20TA PO; -TEMA30CA PO; +TRAM50TA2 PO
--- NOTE | 2022-06-12 23:25 | NUR ---
After being triaged, patient was placed in the waiting to wait to wait for bed opening.
--- NOTE | 2022-06-13 | NUR ---
Patient was called to be placed in room, but was not present in the waiting room or outside of ER.
--- NOTE | 2022-06-13 00:30 | NUR ---
Patient was called to be placed in room but was not present. Patient was triaged, but not seen by ERMD.
== END 2022-06-13 00:30 | disposition left against medical advice (07) ==
LOC: ER 22:54
DX: Z53.21 Procedure and treatment not carried out due to patient leaving prior to being seen by health care provider (principal)

== ENCOUNTER 2022-10-16 19:20 | Emergency (ER) | payer MEDICAID ==
[~2022-10-16] VITALS: Ht 170.2 cm; Wt 108.9 kg
--- NOTE | 2022-10-16 20:10 | NUR ---
After being triaged, patient was placed back in the waiting room due to no beds available in the ER at this time.
--- NOTE | 2022-10-16 20:20 | NUR ---
Patient went up to registration window and stated "I don't want to wait anymore." and patient left ER without being seen by ERMD.
== END 2022-10-16 20:20 | disposition left against medical advice (07) ==
LOC: ER 19:27
DX: R51.9 Headache, unspecified (principal); M54.2 Cervicalgia; Z53.20 Procedure and treatment not carried out because of patient's decision for unspecified reasons
CPT/HCPCS: A4663

== ENCOUNTER 2022-12-13 11:54 | Emergency (ER) | payer MEDICAID ==
[~2022-12-13] VITALS: Ht 170.2 cm; Wt 112.9 kg
--- NOTE | 2022-12-13 12:07 | NUR ---
Dr Mccord at the bedside for MSE.
[2022-12-13] MEDS ORDERED: DEXAMETHASONE SOD PHOSPHATE 4 MG INJ IM ONE (12:15)
[2022-12-13] MEDS ORDERED: DEXAMETHASONE SOD PHOSPHATE 4 MG INJ ONE (12:22)
[2022-12-13] MEDS ORDERED: MINERAL OIL/PETROLATUM,WHITE 57 GM TUBE ONE (12:23)
[2022-12-13] MEDS ORDERED: MISCELLANEOUS MED XX ONE (12:30)
--- NOTE | 2022-12-13 12:44 | NUR ---
Gave pt barrier cream from pharmacy. Pt stated she preferred putting it on herself. Gave pt d/c instructions, pt verbalized understanding.
== END 2022-12-13 12:55 | disposition home or self-care (01) ==
LOC: ER 11:54
DX: L30.9 Dermatitis, unspecified (principal); J44.9 Chronic obstructive pulmonary disease, unspecified; K21.9 Gastro-esophageal reflux disease without esophagitis; Z88.0 Allergy status to penicillin; Z88.1 Allergy status to other antibiotic agents; Z88.2 Allergy status to sulfonamides; Z88.5 Allergy status to narcotic agent; Z88.6 Allergy status to analgesic agent; Z88.8 Allergy status to other drugs, medicaments and biological substances; Z79.2 Long term (current) use of antibiotics; Z79.899 Other long term (current) drug therapy
CPT/HCPCS: 99283; 96372; J1100; A4663

== ENCOUNTER 2023-05-26 16:24 | Emergency (ER) | payer MEDICAID ==
[~2023-05-26] VITALS: Ht 170.2 cm; Wt 108.4 kg
[~2023-05-26 16:24] MED LIST changes: +ALBU8.5H8 INH; +PRED50TA PO
[2023-05-26] MEDS ORDERED: TRAM50TA2 PO (17:17)
[2023-05-26] MEDS ORDERED: TRAMADOL HCL 50 MG TABLET ONE (17:22)
[2023-05-26] MEDS ORDERED: ALBUTEROL SULFATE 2.5 MG/3 ML NEBU NEB ONE (17:30)
[2023-05-26] MEDS ORDERED: TRAMADOL HCL 50 MG TABLET PO ONE (17:30)
[2023-05-26] MEDS ORDERED: ALBUTEROL SULFATE 2.5 MG/3 ML NEBU ONE (17:35)
[2023-05-26 17:50] VITALS: O2SAT 99
[2023-05-26 18:09] VITALS: BP 170/110; TEMP 98.6; O2SAT 99
== END 2023-05-26 18:09 | disposition home or self-care (01) ==
LOC: ER 16:27
DX: R21 Rash and other nonspecific skin eruption (principal); J44.9 Chronic obstructive pulmonary disease, unspecified; K21.9 Gastro-esophageal reflux disease without esophagitis; Z88.0 Allergy status to penicillin; Z88.1 Allergy status to other antibiotic agents; Z88.2 Allergy status to sulfonamides; Z88.5 Allergy status to narcotic agent; Z88.6 Allergy status to analgesic agent; Z88.8 Allergy status to other drugs, medicaments and biological substances; Z79.899 Other long term (current) drug therapy; Z79.2 Long term (current) use of antibiotics
CPT/HCPCS: 94640; A4606; A4663

== ENCOUNTER 2023-08-04 16:41 | Emergency (ER) | payer MEDICAID ==
[~2023-08-04] VITALS: Ht 170.2 cm; Wt 111.1 kg
[2023-08-04] MEDS ORDERED: Paxlovid PO (17:30)
[2023-08-04] MEDS ORDERED: OSEL75CA PO (17:30)
[2023-08-04] MEDS ORDERED: TRAM50TA2 PO (17:30)
[2023-08-04] MEDS ORDERED: BENZ-13 PO (17:30)
[2023-08-04 17:52] VITALS: BP 121/94; TEMP 98.2; O2SAT 98
== END 2023-08-04 17:53 | disposition home or self-care (01) ==
LOC: ER 16:46
DX: J06.9 Acute upper respiratory infection, unspecified (principal); R05.9 Cough, unspecified; R09.81 Nasal congestion; E66.01 Morbid (severe) obesity due to excess calories; Z20.822 Contact with and (suspected) exposure to COVID-19; Z79.899 Other long term (current) drug therapy; Z60.2 Problems related to living alone; Z68.38 Body mass index [BMI] 38.0-38.9, adult; Z88.0 Allergy status to penicillin; Z88.2 Allergy status to sulfonamides; Z88.5 Allergy status to narcotic agent
CPT/HCPCS: A4606; A4663

== ENCOUNTER 2023-08-20 11:35 | Inpatient (IN) | payer MEDICAID ==
[~2023-08-20] VITALS: Ht 170.2 cm; Wt 108.9 kg
[~2023-08-20 11:35] MED LIST changes: +BENZ-13 PO; +OSEL75CA PO; +Paxlovid PO
[2023-08-20 12:32] LABS: BASOPHILS # (AUTO) 0.1 K/UL (0.0-0.2); BASOPHILS % (AUTO) 0.7 % (0.0-2.0); EOSINOPHILS # (AUTO) 0.1 K/uL (0.0-0.7); EOSINOPHILS % (AUTO) 1.9 % (0.0-7.0); HEMATOCRIT 45.2 % (31.2-41.9); HEMOGLOBIN 15.3 g/dL (10.9-14.3); LYMPHOCYTES # (AUTO) 1.4 K/uL (0.8-4.8); LYMPHOCYTES % (AUTO) 18.7 % (20.5-51.5); MEAN CORPUSCULAR HEMOGLOBIN 28.3 uug (24.7-32.8); MEAN CORPUSCULAR HGB CONC 34 g/dL (32.3-35.6); MEAN CORPUSCULAR VOLUME 83.8 fL (75.5-95.3); MONOCYTES # (AUTO) 0.5 K/uL (0.1-1.30); MONOCYTES % (AUTO) 6.2 % (0.0-11.0); NEUTROPHILS # (AUTO) 5.5 K/uL (1.8-8.9); NEUTROPHILS % (AUTO) 72.5 % (38.5-71.5); PLATELET COUNT (AUTO) 240 K/uL (179-408); RED CELL DISTRIBUTION WIDTH 15.1 % (12.3-17.7); WHITE BLOOD COUNT (AUTO) 7.6 K/uL (3.8-11.8)
[2023-08-20 12:40] LABS: DIFFERENTIAL COMMENT 1
[2023-08-20 12:43] LABS: CALCIUM 9.3 mg/dL (8.5-10.1); CARBON DIOXIDE 27 mmol/L (21-32); CHLORIDE 106 mmol/L (98-107); CREATININE 0.9 mg/dL (0.6-1.3); GLUCOSE 157 mg/dL (74-106); POTASSIUM 4.3 mmol/L (3.5-5.1); SODIUM SERUM 140 mmol/L (136-145); UREA NITROGEN, BLOOD 20 mg/dL (7-18)
[2023-08-20] MEDS ORDERED: TRAMADOL HCL 50 MG TABLET PO ONE (13:15)
[2023-08-20] MEDS ORDERED: TRAMADOL HCL 50 MG TABLET ONE (13:21)
[2023-08-20] MEDS ORDERED: NEOMY/BACITRA/POLYMYXIN B OINT UD PACKET TP ONE ×2 (13:46→17:12)
[2023-08-20] MEDS ORDERED: PANTOPRAZOLE SODIUM 40 MG TABLET.DR PO ONE ×2 (16:45→17:03)
[2023-08-20] MEDS ORDERED: ALBUTEROL SULFATE 2.5 MG/3 ML NEBU NEB ONE (18:30)
[2023-08-20] MEDS ORDERED: ALBUTEROL SULFATE 2.5 MG/3 ML NEBU ONE (18:56)
[2023-08-20 19:05] VITALS: O2SAT 21
[2023-08-20 19:15] VITALS: O2SAT 98
[2023-08-20] MEDS ORDERED: TRAMADOL HCL 50 MG TABLET PO PRN (19:15)
[2023-08-20 21:05] VITALS: BP 180/86; TEMP 97.6; O2SAT 96
[2023-08-21] MEDS: TRAMADOL HCL 50 MG TABLET PO PRN ×3 (00:22→20:18)
[2023-08-21 04:00] VITALS: BP 107/57; TEMP 97.6; O2SAT 96
[2023-08-21] MEDS: PANTOPRAZOLE SODIUM 40 MG TABLET.DR PO SCH (06:38)
[2023-08-21 07:06] LABS: BASOPHILS % (AUTO) 0.5 % (0.0-2.0); EOSINOPHILS # (AUTO) 0.2 K/uL (0.0-0.7); EOSINOPHILS % (AUTO) 2.4 % (0.0-7.0); HEMATOCRIT 40.9 % (31.2-41.9); HEMOGLOBIN 13.9 g/dL (10.9-14.3); LYMPHOCYTES # (AUTO) 2.1 K/uL (0.8-4.8); LYMPHOCYTES % (AUTO) 31.7 % (20.5-51.5); MEAN CORPUSCULAR HEMOGLOBIN 28.2 uug (24.7-32.8); MEAN CORPUSCULAR HGB CONC 34 g/dL (32.3-35.6); MEAN CORPUSCULAR VOLUME 83.2 fL (75.5-95.3); MONOCYTES # (AUTO) 0.5 K/uL (0.1-1.30); MONOCYTES % (AUTO) 8.1 % (0.0-11.0); NEUTROPHILS # (AUTO) 3.8 K/uL (1.8-8.9); NEUTROPHILS % (AUTO) 57.3 % (38.5-71.5); PLATELET COUNT (AUTO) 213 K/uL (179-408); RED BLOOD CELL COUNT(AUTO) 4.92 MIL/uL (3.63-4.92); RED CELL DISTRIBUTION WIDTH 15.2 % (12.3-17.7); WHITE BLOOD COUNT (AUTO) 6.7 K/uL (3.8-11.8)
[2023-08-21 07:17] LABS: DIFFERENTIAL COMMENT 1
[2023-08-21 07:27] LABS: BILIRUBIN,TOTAL 0.5 mg/dL (0.2-1.0); CALCIUM 8.3 mg/dL (8.5-10.1); MAGNESIUM 2.1 mg/dL (1.8-2.4); PHOSPHOROUS 4.3 mg/dL (2.5-4.9); TOTAL PROTEIN, SERUM 5.7 g/dL (6.4-8.2)
[2023-08-21 07:34] LABS: THYROID STIMULATING HORMONE 5.121 mIU/mL (0.358-3.740)
[2023-08-21 11:44] VITALS: BP 117/63; TEMP 97.6; O2SAT 98
[2023-08-21] MEDS: NEOMY/BACITRAC/POLYMI OINT 28.35 GM TUBE TOP SCH (13:06)
[2023-08-21] MEDS: ENOXAPARIN SODIUM 40 MG/0.4 ML DISP.SYRIN SQ SCH (14:05)
[2023-08-21 16:15] VITALS: BP 125/50; TEMP 97.7; O2SAT 96
[2023-08-21 20:12] VITALS: BP 151/79; TEMP 97.7; O2SAT 96
[2023-08-21] MEDS ORDERED: TEMAZEPAM 15 MG CAPSULE PO ONE (22:30)
[2023-08-22] MEDS: TRAMADOL HCL 50 MG TABLET PO PRN ×2 (02:22→09:17)
[2023-08-22 04:31] VITALS: BP 121/49; TEMP 97.6; O2SAT 96
[2023-08-22] MEDS: PANTOPRAZOLE SODIUM 40 MG TABLET.DR PO SCH (06:06)
[2023-08-22 08:00] VITALS: BP 149/77; TEMP 97.7; O2SAT 97
[2023-08-22] MEDS: ENOXAPARIN SODIUM 40 MG/0.4 ML DISP.SYRIN SQ SCH (09:00)
[2023-08-22] MEDS: NEOMY/BACITRAC/POLYMI OINT 28.35 GM TUBE TOP SCH (09:23)
== END 2023-08-22 13:45 | disposition home or self-care (01) | DRG 347 ==
LOC: ER 11:35 → MEDSURG3 20:40 → MED 08-22 06:31
PROVIDERS: ADMIT Internal Medicine; ATTEND Nurse Practitioner Acute Care
DX: M51.16 Intervertebral disc disorders with radiculopathy, lumbar region (principal); D68.59 Other primary thrombophilia; E44.1 Mild protein-calorie malnutrition; K76.0 Fatty (change of) liver, not elsewhere classified; E88.09 Other disorders of plasma-protein metabolism, not elsewhere classified; E86.0 Dehydration; R20.2 Paresthesia of skin; E66.01 Morbid (severe) obesity due to excess calories; M54.50 Low back pain, unspecified; R29.6 Repeated falls; Z68.37 Body mass index [BMI] 37.0-37.9, adult; M48.061 Spinal stenosis, lumbar region without neurogenic claudication; S51.811A Laceration without foreign body of right forearm, initial encounter; W18.39XA Other fall on same level, initial encounter; Y93.E1 Activity, personal bathing and showering; Y92.031 Bathroom in apartment as the place of occurrence of the external cause; J44.9 Chronic obstructive pulmonary disease, unspecified; G89.29 Other chronic pain; G62.9 Polyneuropathy, unspecified; K21.9 Gastro-esophageal reflux disease without esophagitis; R79.89 Other specified abnormal findings of blood chemistry; R73.03 Prediabetes; E03.9 Hypothyroidism, unspecified; Z79.899 Other long term (current) drug therapy; Z88.0 Allergy status to penicillin; Z88.1 Allergy status to other antibiotic agents; Z88.2 Allergy status to sulfonamides; Z88.6 Allergy status to analgesic agent; Z88.8 Allergy status to other drugs, medicaments and biological substances; K44.9 Diaphragmatic hernia without obstruction or gangrene; M25.511 Pain in right shoulder
CPT/HCPCS: 36415; 71045; 72131; 73030; 83550; 83735; 84100; 84443; 84484; 85025; 85610; 85730; 93005; G0378; J1650

== ENCOUNTER 2023-09-08 16:46 | Emergency (ER) | payer MEDICAID ==
[~2023-09-08] VITALS: Ht 170.2 cm; Wt 107.0 kg
[~2023-09-08 16:46] MED LIST changes: -BENZ-13 PO; -DOXY100T2 PO; -ENOX40DI SQ; -FLUC200T PO; -OSEL75CA PO; -PRED50TA PO; -Paxlovid PO
[2023-09-08] MEDS ORDERED: TRAMADOL HCL 50 MG TABLET PO ONE (17:15)
[2023-09-08] MEDS ORDERED: TRAM50TA2 PO (17:18)
[2023-09-08] MEDS ORDERED: TRAMADOL HCL 50 MG TABLET ONE (17:22)
[2023-09-08 17:35] VITALS: BP 171/97; O2SAT 96
== END 2023-09-08 17:35 | disposition home or self-care (01) ==
LOC: ER 16:50
DX: G89.29 Other chronic pain (principal); J44.9 Chronic obstructive pulmonary disease, unspecified; E66.01 Morbid (severe) obesity due to excess calories; Z68.37 Body mass index [BMI] 37.0-37.9, adult; Z79.899 Other long term (current) drug therapy; Z60.2 Problems related to living alone; Z88.0 Allergy status to penicillin; Z88.2 Allergy status to sulfonamides; Z88.5 Allergy status to narcotic agent
CPT/HCPCS: A4606; A4663

== ENCOUNTER 2023-10-21 13:25 | Emergency (ER) | payer MEDICAID ==
[~2023-10-21] VITALS: Ht 170.2 cm; Wt 108.9 kg
[~2023-10-21 13:25] MED LIST changes: +PRED50TA PO
[2023-10-21 13:37] VITALS: O2SAT 97
== END 2023-10-21 15:50 | disposition left against medical advice (07) ==
LOC: ER 13:27
DX: R05.9 Cough, unspecified (principal); Z53.21 Procedure and treatment not carried out due to patient leaving prior to being seen by health care provider
CPT/HCPCS: A4606; A4663

== ENCOUNTER 2024-01-12 17:04 | Emergency (ER) | payer MEDICAID ==
[~2024-01-12] VITALS: Ht 170.2 cm; Wt 108.9 kg
[~2024-01-12 17:04] MED LIST changes: +ACET10DR15 RIGHT EAR; +CIPR-263 PO; +CIPR10DR5 RIGHT EAR; +TRAM100C3 PO
[2024-01-12] MEDS ORDERED: TRAMADOL HCL 50 MG TABLET ONE (17:52)
[2024-01-12] MEDS ORDERED: TRAM50TA2 PO (17:53)
[2024-01-12] MEDS: TRAMADOL HCL 50 MG TABLET PO ONE (17:57)
[2024-01-12 18:19] VITALS: TEMP 207.9; O2SAT 95
== END 2024-01-12 18:20 | disposition home or self-care (01) ==
LOC: ER 17:07
DX: T78.40XA Allergy, unspecified, initial encounter (principal); Z76.0 Encounter for issue of repeat prescription; J44.9 Chronic obstructive pulmonary disease, unspecified; K21.9 Gastro-esophageal reflux disease without esophagitis; E66.01 Morbid (severe) obesity due to excess calories; Z79.899 Other long term (current) drug therapy; Z88.2 Allergy status to sulfonamides; Z88.0 Allergy status to penicillin; Z88.5 Allergy status to narcotic agent
CPT/HCPCS: A4606; A4663

== ENCOUNTER 2024-02-09 15:16 | Emergency (ER) | payer MEDICAID ==
[~2024-02-09] VITALS: Ht 170.2 cm; Wt 108.9 kg
[2024-02-09 16:42] LABS: *BILIRUBIN,URIN NEGATIVE (NEGATIVE); *BLOOD, URINE NEGATIVE (NEGATIVE); *CLARITY,URINE CLEAR (CLEAR); *COLOR,URINE YELLOW (YELLOW); *KETONES,URINE NEGATIVE (NEGATIVE); *PROTEIN,URINE NEGATIVE (NEGATIVE); *UROBILINOGEN,URINE 0.2 E.U./dl (NORMAL); LEUKOCYTE ESTERASE ,URINE 3+ (NEGATIVE); NITRITE, URINE NEGATIVE (NEGATIVE); PH,URINE 5.5 (5.0-8.0); UGLUCOSE NEGATIVE (NEGATIVE)
[2024-02-09 17:16] LABS: RBC,URINE 0-3 /HPF (0-3); WBC,URINE 20-50 /HPF (0-3)
[2024-02-09 17:17] LABS: BACTERIA,URINE MODERATE /HPF (NONE SEEN); SQUAMOUS EPITHELIAL CELL,UR MODERATE /HPF (NONE SEEN)
[2024-02-09] MEDS ORDERED: TRAMADOL HCL 50 MG TABLET ONE ×2 (18:03→18:28)
[2024-02-09] MEDS: TRAMADOL HCL 50 MG TABLET PO ONE ×2 (18:07→18:33)
[2024-02-09] MEDS ORDERED: CLOT30CR24 TP (18:32)
[2024-02-09 18:51] VITALS: BP 138/79; TEMP 97; O2SAT 100
== END 2024-02-09 18:55 | disposition home or self-care (01) ==
LOC: ER 15:17
DX: S93.491A Sprain of other ligament of right ankle, initial encounter (principal); B35.4 Tinea corporis; H91.91 Unspecified hearing loss, right ear; J44.9 Chronic obstructive pulmonary disease, unspecified; K21.9 Gastro-esophageal reflux disease without esophagitis; E66.01 Morbid (severe) obesity due to excess calories; Z68.37 Body mass index [BMI] 37.0-37.9, adult; Z79.899 Other long term (current) drug therapy; Z79.51 Long term (current) use of inhaled steroids; Z88.0 Allergy status to penicillin; Z88.2 Allergy status to sulfonamides; Z88.5 Allergy status to narcotic agent; Z88.1 Allergy status to other antibiotic agents; X58.XXXA Exposure to other specified factors, initial encounter; Y93.89 Activity, other specified; Y92.89 Other specified places as the place of occurrence of the external cause; Y99.8 Other external cause status
CPT/HCPCS: 73600; 73650; A4606; A4663

== ENCOUNTER 2024-03-08 15:33 | Emergency (ER) | payer MEDICAID ==
[~2024-03-08] VITALS: Ht 170.2 cm; Wt 108.9 kg
[~2024-03-08 15:33] MED LIST changes: +CLOT30CR24 TP
[2024-03-08 15:38] VITALS: O2SAT 98
[2024-03-08] MEDS ORDERED: TRAM100T23 PO (16:14)
[2024-03-08] MEDS ORDERED: TRAMADOL HCL 50 MG TABLET ONE ×2 (16:16→16:19)
[2024-03-08] MEDS: TRAMADOL HCL 50 MG TABLET PO ONE ×2 (16:20→16:23)
== END 2024-03-08 16:24 | disposition home or self-care (01) ==
LOC: ER 15:34
DX: G89.29 Other chronic pain (principal); M54.9 Dorsalgia, unspecified; Z76.0 Encounter for issue of repeat prescription; J44.9 Chronic obstructive pulmonary disease, unspecified; K21.9 Gastro-esophageal reflux disease without esophagitis; E66.01 Morbid (severe) obesity due to excess calories; Z68.37 Body mass index [BMI] 37.0-37.9, adult; Z79.899 Other long term (current) drug therapy; Z79.51 Long term (current) use of inhaled steroids; Z88.0 Allergy status to penicillin; Z88.2 Allergy status to sulfonamides; Z88.5 Allergy status to narcotic agent
CPT/HCPCS: A4606; A4663

== ENCOUNTER 2024-03-18 20:38 | Emergency (ER) | payer MEDICAID ==
[~2024-03-18] VITALS: Ht 170.2 cm; Wt 108.9 kg
[~2024-03-18 20:38] MED LIST changes: +TRAM100T23 PO
[2024-03-18] MEDS ORDERED: TRAM100T23 PO (23:23)
[2024-03-18] MEDS ORDERED: TRAMADOL HCL 50 MG TABLET ONE ×2 (23:30→23:31)
[2024-03-18] MEDS: TRAMADOL HCL 50 MG TABLET PO ONE (23:33)
[2024-03-18 23:47] VITALS: BP 140/90; O2SAT 95
== END 2024-03-18 23:48 | disposition home or self-care (01) ==
LOC: ER 20:40
DX: G89.29 Other chronic pain (principal); M54.9 Dorsalgia, unspecified; J44.9 Chronic obstructive pulmonary disease, unspecified; K21.9 Gastro-esophageal reflux disease without esophagitis; F17.200 Nicotine dependence, unspecified, uncomplicated; E66.01 Morbid (severe) obesity due to excess calories; Z68.37 Body mass index [BMI] 37.0-37.9, adult; Z79.899 Other long term (current) drug therapy; Z79.891 Long term (current) use of opiate analgesic; Z79.52 Long term (current) use of systemic steroids; Z88.0 Allergy status to penicillin; Z88.2 Allergy status to sulfonamides; Z88.5 Allergy status to narcotic agent; Z88.8 Allergy status to other drugs, medicaments and biological substances
CPT/HCPCS: A4606; A4663

== ENCOUNTER 2024-04-16 21:28 | Emergency (ER) | payer MEDICAID ==
[~2024-04-16] VITALS: Ht 170.2 cm; Wt 108.9 kg
[2024-04-17] MEDS ORDERED: TEMA30CA PO (00:08)
[2024-04-17] MEDS ORDERED: TRAM50TA2 PO (00:08)
[2024-04-17] MEDS ORDERED: TRAMADOL HCL 50 MG TABLET ONE (00:51)
[2024-04-17] MEDS: TRAMADOL HCL 50 MG TABLET PO ONE (00:57)
[2024-04-17 01:36] VITALS: BP 142/88; TEMP 98; O2SAT 98
== END 2024-04-17 01:33 | disposition home or self-care (01) ==
LOC: ER 21:29
DX: R05.9 Cough, unspecified (principal); G89.29 Other chronic pain; Z76.0 Encounter for issue of repeat prescription; J44.9 Chronic obstructive pulmonary disease, unspecified; K21.9 Gastro-esophageal reflux disease without esophagitis; E66.01 Morbid (severe) obesity due to excess calories; Z68.37 Body mass index [BMI] 37.0-37.9, adult; Z79.52 Long term (current) use of systemic steroids; Z20.822 Contact with and (suspected) exposure to COVID-19; Z79.899 Other long term (current) drug therapy; Z88.0 Allergy status to penicillin; Z88.2 Allergy status to sulfonamides; Z88.5 Allergy status to narcotic agent; Z88.1 Allergy status to other antibiotic agents
CPT/HCPCS: A4606; A4663

== ENCOUNTER 2024-05-20 19:14 | Emergency (ER) | payer MEDICAID ==
[~2024-05-20] VITALS: Ht 170.2 cm; Wt 108.9 kg
[~2024-05-20 19:14] MED LIST changes: +TEMA30CA PO
[2024-05-20] MEDS ORDERED: TRAM50TA2 PO (21:29)
[2024-05-20] MEDS ORDERED: DIPH1TAB PO (21:29)
[2024-05-20 22:39] VITALS: BP 144/88; TEMP 97.8; O2SAT 98
== END 2024-05-20 22:39 | disposition home or self-care (01) ==
LOC: ER 19:16
DX: R19.7 Diarrhea, unspecified (principal); G89.29 Other chronic pain; Z76.0 Encounter for issue of repeat prescription; J44.9 Chronic obstructive pulmonary disease, unspecified; K21.9 Gastro-esophageal reflux disease without esophagitis; E66.01 Morbid (severe) obesity due to excess calories; Z79.52 Long term (current) use of systemic steroids; Z87.891 Personal history of nicotine dependence; Z68.37 Body mass index [BMI] 37.0-37.9, adult; Z20.822 Contact with and (suspected) exposure to COVID-19; Z88.0 Allergy status to penicillin; Z88.1 Allergy status to other antibiotic agents; Z88.2 Allergy status to sulfonamides; Z88.5 Allergy status to narcotic agent; Z88.6 Allergy status to analgesic agent; Z88.7 Allergy status to serum and vaccine
CPT/HCPCS: A4606; A4663

== ENCOUNTER 2024-06-09 21:18 | Emergency (ER) | payer MEDICAID ==
[~2024-06-09] VITALS: Ht 2042.2 cm; Wt 108.9 kg
[~2024-06-09 21:18] MED LIST changes: +DIPH1TAB PO
[2024-06-09] MEDS ORDERED: TRAM50TA2 PO ×2 (22:14→22:19)
[2024-06-09] MEDS: TRAMADOL HCL 50 MG TABLET PO ONE (22:20)
[2024-06-09 22:27] VITALS: BP 148/88; O2SAT 98
== END 2024-06-09 23:23 | disposition home or self-care (01) ==
LOC: ER 21:18
DX: M79.604 Pain in right leg (principal); M79.605 Pain in left leg; E66.01 Morbid (severe) obesity due to excess calories; R60.0 Localized edema; G89.29 Other chronic pain; K21.9 Gastro-esophageal reflux disease without esophagitis; J44.9 Chronic obstructive pulmonary disease, unspecified; E88.09 Other disorders of plasma-protein metabolism, not elsewhere classified; R03.0 Elevated blood-pressure reading, without diagnosis of hypertension; Z87.891 Personal history of nicotine dependence; Z79.52 Long term (current) use of systemic steroids; Z68.1 Body mass index [BMI] 19.9 or less, adult; Z88.7 Allergy status to serum and vaccine; Z88.6 Allergy status to analgesic agent; Z88.5 Allergy status to narcotic agent; Z88.2 Allergy status to sulfonamides; Z88.1 Allergy status to other antibiotic agents; Z88.0 Allergy status to penicillin; W06.XXXA Fall from bed, initial encounter; Y93.89 Activity, other specified; Y92.89 Other specified places as the place of occurrence of the external cause; Y99.8 Other external cause status
CPT/HCPCS: A4606; A4663

== ENCOUNTER 2024-07-05 11:39 | Emergency (ER) | payer MEDICAID ==
[~2024-07-05] VITALS: Ht 170.2 cm; Wt 108.4 kg
[2024-07-05] MEDS ORDERED: TRAM100T39 PO (11:51)
[2024-07-05] MEDS ORDERED: HYDR200T4 PO (11:51)
[2024-07-05] MEDS ORDERED: TRAM50TA2 PO (13:14)
[2024-07-05] MEDS ORDERED: ALBUTEROL SULFATE 2.5 MG/3 ML NEBU ONE (13:19)
[2024-07-05] MEDS ORDERED: TRAMADOL HCL 50 MG TABLET ONE (13:20)
[2024-07-05] MEDS: TRAMADOL HCL 50 MG TABLET PO ONE (13:25)
[2024-07-05 13:29] LABS: BASOPHILS # (AUTO) 0.1 K/UL (0.0-0.2); BASOPHILS % (AUTO) 0.8 % (0.0-2.0); DIFFERENTIAL COMMENT 0; EOSINOPHILS # (AUTO) 0.1 K/uL (0.0-0.7); EOSINOPHILS % (AUTO) 0.7 % (0.0-7.0); HEMATOCRIT 49.7 % (31.2-41.9); HEMOGLOBIN 16.7 g/dL (10.9-14.3); LYMPHOCYTES # (AUTO) 2.7 K/uL (0.8-4.8); LYMPHOCYTES % (AUTO) 24.1 % (20.5-51.5); MEAN CORPUSCULAR HEMOGLOBIN 28.3 uug (24.7-32.8); MEAN CORPUSCULAR HGB CONC 34 g/dL (32.3-35.6); MONOCYTES # (AUTO) 0.7 K/uL (0.1-1.30); MONOCYTES % (AUTO) 6.4 % (0.0-11.0); NEUTROPHILS # (AUTO) 7.8 K/uL (1.8-8.9); PLATELET COUNT (AUTO) 257 K/uL (179-408); RED BLOOD CELL COUNT(AUTO) 5.91 MIL/uL (3.63-4.92); RED CELL DISTRIBUTION WIDTH 16.3 % (12.3-17.7); WHITE BLOOD COUNT (AUTO) 11.4 K/uL (3.8-11.8)
[2024-07-05 13:30] VITALS: O2SAT 99
[2024-07-05 13:39] LABS: CALCIUM 10.2 mg/dL (8.5-10.1); CREATININE 1.1 mg/dL (0.6-1.3); POTASSIUM 3.8 mmol/L (3.5-5.1)
[2024-07-05 13:40] VITALS: O2SAT 100
[2024-07-05 13:45] LABS: ALBUMIN 4.1 g/dL (3.4-5.0); BILIRUBIN,TOTAL 0.8 mg/dL (0.2-1.0); TOTAL PROTEIN, SERUM 7.9 g/dL (6.4-8.2)
[2024-07-05] MEDS: ALBUTEROL SULFATE 2.5 MG/3 ML NEBU NEB ONE (13:47)
[2024-07-05 13:51] LABS: ERYTHROCYTE SEDIMENTATION RATE 16 MM/HR (0-20)
[2024-07-05 14:54] VITALS: BP 158/99; O2SAT 97
== END 2024-07-05 14:56 | disposition home or self-care (01) ==
LOC: ER 11:54
DX: G89.29 Other chronic pain (principal); M54.9 Dorsalgia, unspecified; E66.01 Morbid (severe) obesity due to excess calories; G62.9 Polyneuropathy, unspecified; J44.9 Chronic obstructive pulmonary disease, unspecified; K21.9 Gastro-esophageal reflux disease without esophagitis; K76.0 Fatty (change of) liver, not elsewhere classified; Z79.52 Long term (current) use of systemic steroids; Z87.891 Personal history of nicotine dependence; Z68.37 Body mass index [BMI] 37.0-37.9, adult; Z88.0 Allergy status to penicillin; Z88.1 Allergy status to other antibiotic agents; Z88.2 Allergy status to sulfonamides; Z88.5 Allergy status to narcotic agent; Z88.6 Allergy status to analgesic agent; Z88.7 Allergy status to serum and vaccine
CPT/HCPCS: 36415; 72131; 85025; 85651; A4606; A4663

== ENCOUNTER 2024-07-19 11:46 | Emergency (ER) | payer MEDICAID ==
[~2024-07-19] VITALS: Ht 170.2 cm; Wt 108.0 kg
[~2024-07-19 11:46] MED LIST changes: +HYDR200T4 PO; +TRAM100T39 PO
[2024-07-19] MEDS ORDERED: TRAMADOL HCL 50 MG TABLET ONE (12:21)
[2024-07-19] MEDS: TRAMADOL HCL 50 MG TABLET PO ONE (12:25)
[2024-07-19 12:30] VITALS: O2SAT 93
[2024-07-19] MEDS: ALBUTEROL SULFATE 2.5 MG/3 ML NEBU NEB ONE (12:30)
[2024-07-19] MEDS: IPRATROPIUM BROMIDE 0.5 MG/2.5 ML NEBU NEB ONE (12:30)
[2024-07-19] MEDS ORDERED: IPRATROPIUM BROMIDE 0.5 MG/2.5 ML NEBU ONE (12:32)
[2024-07-19] MEDS ORDERED: ALBUTEROL SULFATE 2.5 MG/3 ML NEBU ONE (12:32)
[2024-07-19 12:41] VITALS: O2SAT 93
[2024-07-19 12:42] VITALS: O2SAT 93
[2024-07-19 12:43] VITALS: O2SAT 95
[2024-07-19] MEDS ORDERED: IPRA4AER IH (12:49)
[2024-07-19] MEDS ORDERED: TRAM50TA2 PO (12:49)
[2024-07-19 12:56] VITALS: BP 155/91; O2SAT 95
== END 2024-07-19 12:58 | disposition home or self-care (01) ==
LOC: ER 11:52
DX: G89.29 Other chronic pain (principal); M54.50 Low back pain, unspecified; J44.1 Chronic obstructive pulmonary disease with (acute) exacerbation; E66.01 Morbid (severe) obesity due to excess calories; K21.9 Gastro-esophageal reflux disease without esophagitis; K76.0 Fatty (change of) liver, not elsewhere classified; Z79.52 Long term (current) use of systemic steroids; Z87.891 Personal history of nicotine dependence; Z68.37 Body mass index [BMI] 37.0-37.9, adult; Z88.0 Allergy status to penicillin; Z88.1 Allergy status to other antibiotic agents; Z88.2 Allergy status to sulfonamides; Z88.5 Allergy status to narcotic agent; Z88.6 Allergy status to analgesic agent; Z88.7 Allergy status to serum and vaccine
CPT/HCPCS: A4606; A4663; J3590

== ENCOUNTER 2024-08-07 10:48 | Emergency (ER) | payer MEDICAID ==
[~2024-08-07] VITALS: Ht 170.2 cm; Wt 108.4 kg
[~2024-08-07 10:48] MED LIST changes: +IPRA4AER IH
[2024-08-07] MEDS ORDERED: TRAMADOL HCL 50 MG TABLET ONE (11:31)
[2024-08-07] MEDS: TRAMADOL HCL 50 MG TABLET PO ONE (11:32)
[2024-08-07 12:16] VITALS: BP 156/102; TEMP 98.7; O2SAT 99
== END 2024-08-07 12:17 | disposition home or self-care (01) ==
LOC: ER 10:48
DX: G89.29 Other chronic pain (principal); K21.9 Gastro-esophageal reflux disease without esophagitis; E66.01 Morbid (severe) obesity due to excess calories; Z79.52 Long term (current) use of systemic steroids; Z87.891 Personal history of nicotine dependence; Z68.37 Body mass index [BMI] 37.0-37.9, adult; Z88.0 Allergy status to penicillin; Z88.1 Allergy status to other antibiotic agents; Z88.2 Allergy status to sulfonamides; Z88.5 Allergy status to narcotic agent; Z88.6 Allergy status to analgesic agent; Z88.7 Allergy status to serum and vaccine
CPT/HCPCS: A4606; A4663

== ENCOUNTER 2024-08-19 11:16 | Emergency (ER) | payer MEDICAID ==
[~2024-08-19] VITALS: Ht 162.6 cm; Wt 97.1 kg
[2024-08-19] MEDS ORDERED: TRAMADOL HCL 50 MG TABLET ONE (13:38)
[2024-08-19] MEDS ORDERED: ONDANSETRON ODT 4 MG TAB.RAPDIS ONE (13:38)
[2024-08-19] MEDS: ONDANSETRON ODT 4 MG TAB.RAPDIS SL ONE (13:42)
[2024-08-19] MEDS: TRAMADOL HCL 50 MG TABLET PO ONE (13:42)
[2024-08-19 13:48] VITALS: BP 139/100; TEMP 98; O2SAT 98
== END 2024-08-19 13:48 | disposition home or self-care (01) ==
LOC: ER 11:16
DX: S76.011A Strain of muscle, fascia and tendon of right hip, initial encounter (principal); S76.911A Strain of unspecified muscles, fascia and tendons at thigh level, right thigh, initial encounter; M25.561 Pain in right knee; M54.9 Dorsalgia, unspecified; G62.9 Polyneuropathy, unspecified; G89.29 Other chronic pain; J44.1 Chronic obstructive pulmonary disease with (acute) exacerbation; K21.9 Gastro-esophageal reflux disease without esophagitis; K76.0 Fatty (change of) liver, not elsewhere classified; Z79.52 Long term (current) use of systemic steroids; Z87.891 Personal history of nicotine dependence; Z88.0 Allergy status to penicillin; Z88.1 Allergy status to other antibiotic agents; Z88.2 Allergy status to sulfonamides; Z88.5 Allergy status to narcotic agent; Z88.6 Allergy status to analgesic agent; Z88.7 Allergy status to serum and vaccine
CPT/HCPCS: 73502; 73560; A4606; A4663; Q0162

== ENCOUNTER 2024-08-28 17:12 | Emergency (ER) | payer MEDICAID ==
[~2024-08-28] VITALS: Ht 170.2 cm; Wt 104.3 kg
[2024-08-28 19:35] VITALS: O2SAT 9
== END 2024-08-28 23:00 | disposition left against medical advice (07) ==
LOC: ER 17:12
DX: Z76.0 Encounter for issue of repeat prescription (principal); Z53.21 Procedure and treatment not carried out due to patient leaving prior to being seen by health care provider
CPT/HCPCS: A4606; A4663

== ENCOUNTER 2024-09-07 15:34 | Emergency (ER) | payer MEDICAID ==
[~2024-09-07] VITALS: Ht 170.2 cm; Wt 104.3 kg
[2024-09-07 16:50] VITALS: O2SAT 98
[2024-09-07] MEDS ORDERED: TRAMADOL HCL 50 MG TABLET ONE (17:33)
[2024-09-07] MEDS: TRAMADOL HCL 50 MG TABLET PO ONE (17:39)
== END 2024-09-07 17:30 | disposition home or self-care (01) ==
LOC: ER 15:34
DX: G89.29 Other chronic pain (principal); Z79.52 Long term (current) use of systemic steroids; Z79.891 Long term (current) use of opiate analgesic; Z87.891 Personal history of nicotine dependence; Z88.0 Allergy status to penicillin; Z88.1 Allergy status to other antibiotic agents; Z88.2 Allergy status to sulfonamides; Z88.5 Allergy status to narcotic agent; Z88.6 Allergy status to analgesic agent; Z88.7 Allergy status to serum and vaccine; Z86.69 Personal history of other diseases of the nervous system and sense organs; Z87.09 Personal history of other diseases of the respiratory system; Z87.19 Personal history of other diseases of the digestive system
CPT/HCPCS: A4606; A4663

== ENCOUNTER 2024-10-11 18:35 | Emergency (ER) | payer MEDICARE, OTHER ==
[~2024-10-11] VITALS: Ht 170.2 cm; Wt 108.4 kg
[2024-10-11 19:21] LABS: *BILIRUBIN,URIN NEGATIVE (NEGATIVE); *BLOOD, URINE NEGATIVE (NEGATIVE); *CLARITY,URINE CLEAR (CLEAR); *COLOR,URINE YELLOW (YELLOW); *KETONES,URINE NEGATIVE (NEGATIVE); *PROTEIN,URINE NEGATIVE (NEGATIVE); *UROBILINOGEN,URINE 0.2 E.U./dl (NORMAL); LEUKOCYTE ESTERASE ,URINE 1+ (NEGATIVE); NITRITE, URINE NEGATIVE (NEGATIVE); PH,URINE 5.5 (5.0-8.0); UGLUCOSE NEGATIVE (NEGATIVE)
[2024-10-11] MEDS ORDERED: TRAMADOL HCL 50 MG TABLET ONE (19:39)
[2024-10-11] MEDS: TRAMADOL HCL 50 MG TABLET PO ONE ×2 (19:39→20:19)
[2024-10-11 19:48] LABS: BASOPHILS # (AUTO) 0.1 K/UL (0.0-0.2); BASOPHILS % (AUTO) 0.9 % (0.0-2.0); EOSINOPHILS # (AUTO) 0.2 K/uL (0.0-0.7); EOSINOPHILS % (AUTO) 3.1 % (0.0-7.0); HEMATOCRIT 43.4 % (31.2-41.9); HEMOGLOBIN 14.6 g/dL (10.9-14.3); LYMPHOCYTES # (AUTO) 2.1 K/uL (0.8-4.8); LYMPHOCYTES % (AUTO) 28.5 % (20.5-51.5); MEAN CORPUSCULAR HEMOGLOBIN 28.3 uug (24.7-32.8); MEAN CORPUSCULAR HGB CONC 34 g/dL (32.3-35.6); MEAN CORPUSCULAR VOLUME 83.9 fL (75.5-95.3); MONOCYTES # (AUTO) 0.5 K/uL (0.1-1.30); NEUTROPHILS # (AUTO) 4.5 K/uL (1.8-8.9); NEUTROPHILS % (AUTO) 60.5 % (38.5-71.5); PLATELET COUNT (AUTO) 202 K/uL (179-408); RED BLOOD CELL COUNT(AUTO) 5.17 MIL/uL (3.63-4.92); WHITE BLOOD COUNT (AUTO) 7.5 K/uL (3.8-11.8)
[2024-10-11 19:49] LABS: DIFFERENTIAL COMMENT 1
[2024-10-11 19:54] LABS: CALCIUM 9.3 mg/dL (8.5-10.1); CARBON DIOXIDE 30 mmol/L (21-32); CHLORIDE 105 mmol/L (98-107); CREATININE 0.9 mg/dL (0.6-1.3); GLUCOSE 103 mg/dL (74-106); POTASSIUM 4.1 mmol/L (3.5-5.1); SODIUM SERUM 142 mmol/L (136-145); UREA NITROGEN, BLOOD 12 mg/dL (7-18)
[2024-10-11 19:59] LABS: ALANINE AMINOTRANSFERASE 18 U/L (14-59); ALBUMIN 3.8 g/dL (3.4-5.0); ALKALINE PHOSPHATASE 106 U/L (50-136); ASPARTATE AMINOTRANSFERASE 17 U/L (15-37); BILIRUBIN,TOTAL 0.7 mg/dL (0.2-1.0); TOTAL PROTEIN, SERUM 6.9 g/dL (6.4-8.2)
[2024-10-11 20:01] LABS: RBC,URINE 0-3 /HPF (0-3)
[2024-10-11 20:07] LABS: C-REACTIVE PROTEIN < 0.00 mg/dL (0.00-0.30)
[2024-10-11 20:08] LABS: BACTERIA,URINE FEW /HPF (NONE SEEN); SQUAMOUS EPITHELIAL CELL,UR MODERATE /HPF (NONE SEEN)
[2024-10-11] MEDS ORDERED: CIPR500S2 PO (22:17)
[2024-10-11] MEDS ORDERED: TRAM50TA2 PO (22:17)
[2024-10-11 22:29] VITALS: BP 146/89; O2SAT 97
== END 2024-10-11 22:31 | disposition home or self-care (01) ==
LOC: ER 18:35
DX: N39.0 Urinary tract infection, site not specified (principal); G89.29 Other chronic pain; M79.604 Pain in right leg; R03.0 Elevated blood-pressure reading, without diagnosis of hypertension; R51.9 Headache, unspecified; K21.9 Gastro-esophageal reflux disease without esophagitis; Z79.52 Long term (current) use of systemic steroids; Z87.891 Personal history of nicotine dependence; Z88.0 Allergy status to penicillin; Z88.1 Allergy status to other antibiotic agents; Z88.2 Allergy status to sulfonamides; Z88.5 Allergy status to narcotic agent; Z88.6 Allergy status to analgesic agent; Z88.7 Allergy status to serum and vaccine; Z86.69 Personal history of other diseases of the nervous system and sense organs; Z87.09 Personal history of other diseases of the respiratory system
CPT/HCPCS: 36415; 85025; 86140; 87086; A4606; A4663

== ENCOUNTER 2024-11-10 15:53 | Emergency (ER) | payer MEDICARE, OTHER ==
[~2024-11-10] VITALS: Ht 170.2 cm; Wt 108.9 kg
[~2024-11-10 15:53] MED LIST changes: +CIPR500S2 PO
[2024-11-10] MEDS ORDERED: TRAMADOL HCL 50 MG TABLET ONE (17:49)
[2024-11-10] MEDS: TRAMADOL HCL 50 MG TABLET PO ONE (17:52)
[2024-11-10] MEDS ORDERED: TRAM50TA2 PO (17:53)
[2024-11-10 18:28] LABS: *BILIRUBIN,URIN NEGATIVE (NEGATIVE); *BLOOD, URINE NEGATIVE (NEGATIVE); *CLARITY,URINE CLEAR (CLEAR); *COLOR,URINE YELLOW (YELLOW); *KETONES,URINE NEGATIVE (NEGATIVE); *PROTEIN,URINE TRACE (NEGATIVE); *UROBILINOGEN,URINE 0.2 E.U./dl (NORMAL); LEUKOCYTE ESTERASE ,URINE 1+ (NEGATIVE); NITRITE, URINE NEGATIVE (NEGATIVE); UGLUCOSE NEGATIVE (NEGATIVE)
[2024-11-10 18:36] LABS: RBC,URINE 0-3 /HPF (0-3)
[2024-11-10] MEDS ORDERED: NITR100C11 PO (18:45)
[2024-11-10] MEDS ORDERED: CIPR-262 PO (18:54)
[2024-11-10 19:06] VITALS: BP 160/88; O2SAT 97
== END 2024-11-10 19:07 | disposition home or self-care (01) ==
LOC: ER 16:59
DX: G89.29 Other chronic pain (principal); M79.10 Myalgia, unspecified site; Z76.0 Encounter for issue of repeat prescription; Z79.52 Long term (current) use of systemic steroids; Z87.891 Personal history of nicotine dependence; Z88.0 Allergy status to penicillin; Z88.1 Allergy status to other antibiotic agents; Z88.2 Allergy status to sulfonamides; Z88.5 Allergy status to narcotic agent; Z88.6 Allergy status to analgesic agent; Z88.7 Allergy status to serum and vaccine; Z91.148 Patient's other noncompliance with medication regimen for other reason
CPT/HCPCS: 87086; A4606; A4663

== ENCOUNTER 2024-11-22 14:24 | Emergency (ER) | payer MEDICARE, OTHER ==
[~2024-11-22] VITALS: Ht 170.2 cm; Wt 104.3 kg
[~2024-11-22 14:24] MED LIST changes: +CIPR-262 PO
[2024-11-22] MEDS ORDERED: PRED50TA PO (16:26)
[2024-11-22] MEDS ORDERED: ALBUTEROL SULFATE 2.5 MG/3 ML NEBU ONE (16:26)
[2024-11-22] MEDS ORDERED: IPRATROPIUM BROMIDE 0.5 MG/2.5 ML NEBU ONE (16:26)
[2024-11-22 16:27] VITALS: O2SAT 98
[2024-11-22] MEDS: ALBUTEROL SULFATE 2.5 MG/3 ML NEBU NEB ONE (16:27)
[2024-11-22] MEDS: IPRATROPIUM BROMIDE 0.5 MG/2.5 ML NEBU NEB ONE (16:27)
[2024-11-22] MEDS ORDERED: predniSONE 10 MG TABLET ONE (16:28)
[2024-11-22] MEDS ORDERED: predniSONE 50 MG TABLET ONE (16:28)
[2024-11-22] MEDS: predniSONE 10 MG TABLET PO ONE (16:29)
[2024-11-22 16:42] VITALS: O2SAT 100; O2SAT 99
[2024-11-22] MEDS ORDERED: TRAMADOL HCL 50 MG TABLET ONE (18:16)
[2024-11-22] MEDS: TRAMADOL HCL 50 MG TABLET PO ONE (18:18)
[2024-11-22 18:24] VITALS: BP 161/77; O2SAT 100
== END 2024-11-22 18:26 | disposition home or self-care (01) ==
LOC: ER 14:27
DX: J44.1 Chronic obstructive pulmonary disease with (acute) exacerbation (principal); M54.9 Dorsalgia, unspecified; R21 Rash and other nonspecific skin eruption; G89.29 Other chronic pain; K21.9 Gastro-esophageal reflux disease without esophagitis; Z79.52 Long term (current) use of systemic steroids; Z87.891 Personal history of nicotine dependence; Z88.0 Allergy status to penicillin; Z88.1 Allergy status to other antibiotic agents; Z88.2 Allergy status to sulfonamides; Z88.5 Allergy status to narcotic agent; Z88.6 Allergy status to analgesic agent; Z88.7 Allergy status to serum and vaccine
CPT/HCPCS: 71045; 94760; A4606; A4663; J3590; J7512

== ENCOUNTER 2024-12-31 14:06 | Emergency (ER) | payer MEDICARE, OTHER ==
[~2024-12-31] VITALS: Ht 170.2 cm; Wt 104.3 kg
[2024-12-31 14:26] LABS: *BILIRUBIN,URIN 1+ (NEGATIVE); *COLOR,URINE YELLOW (YELLOW); *KETONES,URINE NEGATIVE (NEGATIVE); *PROTEIN,URINE TRACE (NEGATIVE); *UROBILINOGEN,URINE 0.2 E.U./dl (NORMAL); LEUKOCYTE ESTERASE ,URINE 1+ (NEGATIVE); NITRITE, URINE NEGATIVE (NEGATIVE); UGLUCOSE NEGATIVE (NEGATIVE)
[2024-12-31 14:27] LABS: *BLOOD, URINE TRACE (NEGATIVE); *CLARITY,URINE HAZY (CLEAR)
[2024-12-31 14:42] LABS: RBC,URINE 0-3 /HPF (0-3)
[2024-12-31 14:43] LABS: BACTERIA,URINE MODERATE /HPF (NONE SEEN); SQUAMOUS EPITHELIAL CELL,UR MANY /HPF (NONE SEEN)
[2024-12-31] MEDS ORDERED: TRAMADOL HCL 50 MG TABLET ONE (15:44)
[2024-12-31] MEDS: TRAMADOL HCL 50 MG TABLET PO ONE (15:50)
[2024-12-31] MEDS ORDERED: TRAM50TA PO (16:24)
[2024-12-31 16:51] VITALS: BP 131/87; O2SAT 98
== END 2024-12-31 16:52 | disposition home or self-care (01) ==
LOC: ER 14:06
DX: S92.912A Unspecified fracture of left toe(s), initial encounter for closed fracture (principal); K21.9 Gastro-esophageal reflux disease without esophagitis; Z79.52 Long term (current) use of systemic steroids; Z87.891 Personal history of nicotine dependence; Z88.0 Allergy status to penicillin; Z88.1 Allergy status to other antibiotic agents; Z88.2 Allergy status to sulfonamides; Z88.5 Allergy status to narcotic agent; Z88.6 Allergy status to analgesic agent; Z88.7 Allergy status to serum and vaccine; Z86.69 Personal history of other diseases of the nervous system and sense organs; Z87.09 Personal history of other diseases of the respiratory system; Z88.8 Allergy status to other drugs, medicaments and biological substances; X58.XXXA Exposure to other specified factors, initial encounter; Y93.89 Activity, other specified; Y92.89 Other specified places as the place of occurrence of the external cause; Y99.8 Other external cause status
CPT/HCPCS: 73660; 87086; A4606; A4663

== ENCOUNTER 2025-01-28 19:57 | Emergency (ER) | payer MEDICARE, OTHER ==
[~2025-01-28] VITALS: Ht 170.2 cm; Wt 108.4 kg
[~2025-01-28 19:57] MED LIST changes: +TRAM50TA PO
[2025-01-28 20:40] VITALS: O2SAT 97
[2025-01-28] MEDS ORDERED: IPRATROPIUM BROMIDE 0.5 MG/2.5 ML NEBU ONE (20:42)
[2025-01-28] MEDS ORDERED: ALBUTEROL SULFATE 2.5 MG/ 0.5 ML NEBU ONE (20:42)
[2025-01-28] MEDS: IPRATROPIUM BROMIDE 0.5 MG/2.5 ML NEBU NEB ONE (20:51)
[2025-01-28] MEDS: ALBUTEROL SULFATE 2.5 MG/ 0.5 ML NEBU NEB ONE (20:51)
[2025-01-28 20:55] VITALS: O2SAT 99
[2025-01-28 22:08] LABS: *BILIRUBIN,URIN NEGATIVE (NEGATIVE); *BLOOD, URINE NEGATIVE (NEGATIVE); *CLARITY,URINE CLEAR (CLEAR); *COLOR,URINE YELLOW (YELLOW); *KETONES,URINE NEGATIVE (NEGATIVE); *PROTEIN,URINE NEGATIVE (NEGATIVE); *UROBILINOGEN,URINE 0.2 E.U./dl (NORMAL); LEUKOCYTE ESTERASE ,URINE TRACE (NEGATIVE); NITRITE, URINE NEGATIVE (NEGATIVE); PH,URINE 5.5 (5.0-8.0); UGLUCOSE TRACE (NEGATIVE)
[2025-01-28] MEDS ORDERED: predniSONE 20 MG TABLET ONE (22:13)
[2025-01-28] MEDS: predniSONE 20 MG TABLET PO ONE (22:15)
[2025-01-28 22:45] LABS: BACTERIA,URINE FEW /HPF (NONE SEEN); RBC,URINE 0-3 /HPF (0-3); SQUAMOUS EPITHELIAL CELL,UR MODERATE /HPF (NONE SEEN); WBC,URINE 0-3 /HPF (0-3)
[2025-01-28] MEDS ORDERED: PRED20TA PO (22:49)
[2025-01-28] MEDS ORDERED: NITR100C6 PO (22:49)
[2025-01-28] MEDS ORDERED: FLUT16SP16 BNOSTRILS (22:49)
[2025-01-28] MEDS ORDERED: ALBU18HF2 INH (22:49)
[2025-01-28 22:56] VITALS: BP 150/96; O2SAT 99
== END 2025-01-28 22:58 | disposition home or self-care (01) ==
LOC: ER 20:06
DX: J44.1 Chronic obstructive pulmonary disease with (acute) exacerbation (principal); J45.901 Unspecified asthma with (acute) exacerbation; N39.0 Urinary tract infection, site not specified; E66.01 Morbid (severe) obesity due to excess calories; G89.29 Other chronic pain; L30.9 Dermatitis, unspecified; M79.675 Pain in left toe(s); K21.9 Gastro-esophageal reflux disease without esophagitis; R03.0 Elevated blood-pressure reading, without diagnosis of hypertension; Z77.22 Contact with and (suspected) exposure to environmental tobacco smoke (acute) (chronic); Z79.52 Long term (current) use of systemic steroids; Z87.891 Personal history of nicotine dependence; Z88.0 Allergy status to penicillin; Z88.1 Allergy status to other antibiotic agents; Z88.2 Allergy status to sulfonamides; Z88.5 Allergy status to narcotic agent; Z88.6 Allergy status to analgesic agent; Z88.7 Allergy status to serum and vaccine; Z86.69 Personal history of other diseases of the nervous system and sense organs; Z87.09 Personal history of other diseases of the respiratory system; Z88.8 Allergy status to other drugs, medicaments and biological substances; Z68.37 Body mass index [BMI] 37.0-37.9, adult
CPT/HCPCS: 99284; 71045; 81001; 94640; J7512; A4606; A4663; J3590

== ENCOUNTER 2025-01-30 22:05 | Emergency (ER) | payer MEDICARE, OTHER ==
[~2025-01-30] VITALS: Ht 170.2 cm; Wt 108.4 kg
[~2025-01-30 22:05] MED LIST changes: +ALBU18HF2 INH; +FLUT16SP16 BNOSTRILS; +NITR100C6 PO; +PRED20TA PO
[2025-01-30] MEDS ORDERED: CLOT15CR27 TP (23:11)
[2025-01-30] MEDS ORDERED: CLIN300C12 PO (23:11)
[2025-01-30] MEDS ORDERED: FLUCONAZOLE 100 MG TABLET ONE (23:15)
[2025-01-30] MEDS: FLUCONAZOLE 100 MG TABLET PO ONE (23:16)
[2025-01-30 23:44] VITALS: BP 163/101; O2SAT 97
== END 2025-01-30 23:44 | disposition home or self-care (01) ==
LOC: ER 22:07
DX: L30.4 Erythema intertrigo (principal); B37.2 Candidiasis of skin and nail; L03.313 Cellulitis of chest wall; J44.9 Chronic obstructive pulmonary disease, unspecified; Z79.52 Long term (current) use of systemic steroids; Z87.891 Personal history of nicotine dependence; Z88.0 Allergy status to penicillin; Z88.1 Allergy status to other antibiotic agents; Z88.2 Allergy status to sulfonamides; Z88.5 Allergy status to narcotic agent; Z88.6 Allergy status to analgesic agent; Z88.7 Allergy status to serum and vaccine; Z87.39 Personal history of other diseases of the musculoskeletal system and connective tissue; Z88.8 Allergy status to other drugs, medicaments and biological substances
CPT/HCPCS: A4606; A4663

== ENCOUNTER 2025-02-07 15:05 | Inpatient (IN) | payer MEDICARE, OTHER ==
[~2025-02-07] VITALS: Ht 170.2 cm; Wt 108.4 kg
[~2025-02-07 15:05] MED LIST changes: +CLIN300C12 PO; +CLOT15CR27 TP
[2025-02-07 16:17] VITALS: O2SAT 98
[2025-02-07] MEDS: ALBUTEROL SULFATE 2.5 MG/3 ML NEBU NEB ONE (16:17)
[2025-02-07] MEDS: IPRATROPIUM BROMIDE 0.5 MG/2.5 ML NEBU NEB ONE (16:17)
[2025-02-07] MEDS ORDERED: IPRATROPIUM BROMIDE 0.5 MG/2.5 ML NEBU ONE (16:18)
[2025-02-07] MEDS ORDERED: ALBUTEROL SULFATE 2.5 MG/3 ML NEBU ONE (16:18)
[2025-02-07 16:19] LABS: PLATELET COUNT (AUTO) 255 K/uL (179-408); RED BLOOD CELL COUNT(AUTO) 6.03 MIL/uL (3.63-4.92); RED CELL DISTRIBUTION WIDTH 15.6 % (12.3-17.7); WHITE BLOOD COUNT (AUTO) 11.8 K/uL (3.8-11.8)
[2025-02-07 16:28] LABS: CREATININE 1.2 mg/dL (0.6-1.3); SODIUM SERUM 140 mmol/L (136-145); UREA NITROGEN, BLOOD 15 mg/dL (7-18)
[2025-02-07 16:34] LABS: ASPARTATE AMINOTRANSFERASE 18 U/L (15-37); TOTAL PROTEIN, SERUM 7.1 g/dL (6.4-8.2)
[2025-02-07 17:17] VITALS: O2SAT 100
[2025-02-07] MEDS ORDERED: PANTOPRAZOLE SODIUM 40 MG TABLET.DR PO ONE (17:27)
[2025-02-07] MEDS: PANTOPRAZOLE SODIUM 40 MG TABLET.DR PO ONE (17:29)
[2025-02-07 17:39] LABS: *BILIRUBIN,URIN 1+ (NEGATIVE); *BLOOD, URINE NEGATIVE (NEGATIVE); *KETONES,URINE 1+ (NEGATIVE); *PROTEIN,URINE 1+ (NEGATIVE); *UROBILINOGEN,URINE 0.2 E.U./dl (NORMAL); LEUKOCYTE ESTERASE ,URINE 1+ (NEGATIVE); NITRITE, URINE NEGATIVE (NEGATIVE); UGLUCOSE NEGATIVE (NEGATIVE)
[2025-02-07 17:40] LABS: *CLARITY,URINE SLIGHTLY CLOUDY (CLEAR)
[2025-02-07 17:50] LABS: *COLOR,URINE YELLOW (YELLOW)
[2025-02-07 17:53] LABS: SQUAMOUS EPITHELIAL CELL,UR MANY /HPF (NONE SEEN)
[2025-02-07] MEDS ORDERED: IPRATROPIUM BROMIDE 0.5 MG/2.5 ML NEBU NEB PRN (18:30)
[2025-02-07] MEDS ORDERED: ALBUTEROL SULFATE 2.5 MG/3 ML NEBU NEB PRN (18:30)
[2025-02-07] MEDS ORDERED: MAGNESIUM HYDROXIDE 30 ML LIQUID UDC PO PRN (18:30)
[2025-02-07] MEDS ORDERED: ONDANSETRON 4 MG/2 ML VIAL IV PRN (18:30)
[2025-02-07] MEDS ORDERED: CEFTRIAXONE 1 G in IV DEXTROSE 5% 50 ML IV SCH (18:45)
[2025-02-07 18:51] VITALS: BP 165/81; TEMP 97.8; O2SAT 99
[2025-02-07 19:46] VITALS: BP 161/98; TEMP 97.6; O2SAT 94
[2025-02-07] MEDS: NITROFURANTOIN/NITROFURAN MAC 100 MG CAPSULE PO SCH (20:26)
[2025-02-07] MEDS ORDERED: methylPREDNISolone SOD SUCC 500 MG in IV DEXTROSE 5% 100 ML IV SCH (21:00)
[2025-02-07] MEDS ORDERED: NITROFURANTOIN/NITROFURAN MAC 100 MG CAPSULE PO SCH (21:00)
[2025-02-07] MEDS: METHOCARBAMOL 500 MG TABLET PO SCH (21:11)
[2025-02-07] MEDS: TRAMADOL HCL 50 MG TABLET PO PRN (21:12)
[2025-02-07] MEDS: methylPREDNISolone SOD SUCC 500 MG in IV DEXTROSE 5% 100 ML IV SCH (21:24)
[2025-02-07] MEDS: TRIAMCINOLONE ACET 0.025% OINT 15 GM TUBE TOP SCH (21:44)
[2025-02-08 04:57] VITALS: BP 166/92; TEMP 97.4; O2SAT 98
[2025-02-08] MEDS: PANTOPRAZOLE SODIUM 40 MG TABLET.DR PO SCH (06:12)
[2025-02-08 07:01] LABS: PLATELET COUNT (AUTO) 246 K/uL (179-408); RED BLOOD CELL COUNT(AUTO) 5.69 MIL/uL (3.63-4.92); RED CELL DISTRIBUTION WIDTH 15.6 % (12.3-17.7); WHITE BLOOD COUNT (AUTO) 9.3 K/uL (3.8-11.8)
[2025-02-08 07:23] LABS: CREATININE 1.0 mg/dL (0.6-1.3); SODIUM SERUM 141.0 mmol/L (136-145); UREA NITROGEN, BLOOD 16.0 mg/dL (7-18)
[2025-02-08] MEDS ORDERED: TRIAMCINOLONE ACET 0.025% OINT 15 GM TUBE TOP SCH (08:00)
[2025-02-08] MEDS: ACETAMINOPHEN 325 MG TABLET PO PRN (08:55)
[2025-02-08] MEDS ORDERED: CLOT15CR27 TP (10:54)
[2025-02-08] MEDS ORDERED: NITR-104 PO (10:55)
[2025-02-08] MEDS ORDERED: ALBU18HF2 IH (10:56)
[2025-02-08] MEDS ORDERED: PRED10TA PO (10:57)
[2025-02-08] MEDS ORDERED: TRAM50TA2 PO (10:58)
[2025-02-08] MEDS ORDERED: TIOT4MIS3 INH (10:58)
[2025-02-08] MEDS ORDERED: IPRA4AER IH (11:00)
[2025-02-08] MEDS: CLOTRIMAZOLE 1% CREAM 30 GM TUBE TOP SCH (11:01)
[2025-02-08] MEDS ORDERED: TEMA30CA PO (11:01)
[2025-02-08] MEDS ORDERED: ACET325T53 PO (11:02)
[2025-02-08] MEDS ORDERED: ACETAMINOPHEN 325 MG TABLET-SA PATIENTS-PAIN ONLY PO PRN (11:45)
[2025-02-08] MEDS ORDERED: TEMAZEPAM 15 MG CAPSULE PO PRN (12:00)
[2025-02-08 12:33] VITALS: BP 161/87; TEMP 98.3; O2SAT 97
[2025-02-08 16:00] VITALS: BP 158/87; TEMP 97.4; O2SAT 96
[2025-02-09 00:15] VITALS: BP 137/88; TEMP 97.9; O2SAT 94
[2025-02-09 04:53] VITALS: BP 144/74; TEMP 97.6; O2SAT 95
[2025-02-09 13:35] VITALS: O2SAT 95
[2025-02-09] MEDS: TRAMADOL HCL 50 MG TABLET PO PRN (14:35)
[2025-02-09] MEDS: CLOTRIMAZOLE 1% CREAM 30 GM TUBE TOP SCH (16:05)
[2025-02-09 17:28] VITALS: BP 163/87; TEMP 98; O2SAT 97
[2025-02-09 20:00] VITALS: BP 179/97; TEMP 97.9; O2SAT 98
[2025-02-09 21:22] VITALS: O2SAT 96
[2025-02-10 05:00] VITALS: BP 139/72; TEMP 97.8; O2SAT 98
[2025-02-10 08:00] VITALS: BP 159/86; TEMP 97.8; O2SAT 97
[2025-02-10 11:28] VITALS: BP 164/87; TEMP 97.6; O2SAT 98
[2025-02-10] MEDS ORDERED: MENT118G TP (11:29)
[2025-02-10] MEDS ORDERED: METH4TAB3 PO (11:29)
[2025-02-10] MEDS ORDERED: NITR100C11 PO (11:29)
[2025-02-10 16:34] VITALS: TEMP 97.6
== END 2025-02-10 19:45 | disposition home or self-care (01) | DRG 546 ==
LOC: ER 15:08 → MEDSURG3 18:02
PROVIDERS: ADMIT Nurse Practitioner Family; ATTEND Nurse Practitioner Family
DX: M32.9 Systemic lupus erythematosus, unspecified (principal); J44.1 Chronic obstructive pulmonary disease with (acute) exacerbation; N39.0 Urinary tract infection, site not specified; K21.9 Gastro-esophageal reflux disease without esophagitis; E66.01 Morbid (severe) obesity due to excess calories; Z68.37 Body mass index [BMI] 37.0-37.9, adult; L26 Exfoliative dermatitis; G89.4 Chronic pain syndrome; E11.65 Type 2 diabetes mellitus with hyperglycemia; Z88.0 Allergy status to penicillin; Z88.2 Allergy status to sulfonamides; Z88.1 Allergy status to other antibiotic agents; Z88.6 Allergy status to analgesic agent; Z88.5 Allergy status to narcotic agent; Z79.899 Other long term (current) drug therapy; K76.0 Fatty (change of) liver, not elsewhere classified; E11.40 Type 2 diabetes mellitus with diabetic neuropathy, unspecified; B37.2 Candidiasis of skin and nail; Z66 Do not resuscitate
CPT/HCPCS: 36415; 71045; 73660; 83735; 84100; 84484; 85025; 85651; 85730; 87086; 94760; A4606; A4663; G0378; J2919; J3590; J7512

== ENCOUNTER 2025-02-26 16:34 | Emergency (ER) | payer MEDICARE, OTHER ==
[~2025-02-26] VITALS: Ht 170.2 cm; Wt 106.6 kg
[~2025-02-26 16:34] MED LIST changes: -ACET10DR15 RIGHT EAR; +ACET325T53 PO; +ALBU18HF2 IH; -ALBU18HF2 INH; -ALBU8.5H8 INH; -CIPR-262 PO; -CIPR-263 PO; -CIPR10DR5 RIGHT EAR; -CIPR500S2 PO; -CLIN300C12 PO; -CLOT30CR24 TP; -DIPH1TAB PO; -FLUT16SP16 BNOSTRILS; -HYDR200T4 PO; -KETO15CR2 TP; +MENT118G TP; +METH4TAB3 PO; +NITR100C11 PO; -NITR100C6 PO; -PRED20TA PO; -PRED50TA PO; +TIOT4MIS3 INH; -TRAM100C3 PO; -TRAM100T23 PO; -TRAM100T39 PO; -TRAM50TA PO
[2025-02-26] MEDS: ALBUTEROL SULFATE 2.5 MG/3 ML NEBU NEB ONE (17:18)
[2025-02-26] MEDS: IPRATROPIUM BROMIDE 0.5 MG/2.5 ML NEBU NEB ONE (17:18)
[2025-02-26] MEDS ORDERED: IPRATROPIUM BROMIDE 0.5 MG/2.5 ML NEBU ONE (17:21)
[2025-02-26] MEDS ORDERED: ALBUTEROL SULFATE 2.5 MG/3 ML NEBU ONE (17:21)
[2025-02-26 17:25] VITALS: O2SAT 100
[2025-02-26 17:32] LABS: PLATELET COUNT (AUTO) 209 K/uL (179-408); RED BLOOD CELL COUNT(AUTO) 5.45 MIL/uL (3.63-4.92); RED CELL DISTRIBUTION WIDTH 15.9 % (12.3-17.7); WHITE BLOOD COUNT (AUTO) 8.9 K/uL (3.8-11.8)
[2025-02-26 17:43] LABS: CREATININE 0.8 mg/dL (0.6-1.3); SODIUM SERUM 145 mmol/L (136-145); UREA NITROGEN, BLOOD 19 mg/dL (7-18)
[2025-02-26 17:49] LABS: ASPARTATE AMINOTRANSFERASE 15 U/L (15-37); TOTAL PROTEIN, SERUM 6.8 g/dL (6.4-8.2)
[2025-02-26 18:20] VITALS: O2SAT 100
[2025-02-26] MEDS ORDERED: FLUT12AE20 INH (18:24)
[2025-02-26] MEDS ORDERED: ALBU18HF2 INH (18:24)
[2025-02-26] MEDS ORDERED: ESOM20CA PO (18:42)
[2025-02-26] MEDS ORDERED: TRAM50TA2 PO (18:42)
[2025-02-26 18:51] LABS: *BILIRUBIN,URIN NEGATIVE (NEGATIVE); *BLOOD, URINE NEGATIVE (NEGATIVE); *CLARITY,URINE CLEAR (CLEAR); *COLOR,URINE YELLOW (YELLOW); *KETONES,URINE TRACE (NEGATIVE); *PROTEIN,URINE NEGATIVE (NEGATIVE); *UROBILINOGEN,URINE 0.2 E.U./dl (NORMAL); LEUKOCYTE ESTERASE ,URINE 1+ (NEGATIVE); NITRITE, URINE NEGATIVE (NEGATIVE); UGLUCOSE NEGATIVE (NEGATIVE)
[2025-02-26 19:06] LABS: SQUAMOUS EPITHELIAL CELL,UR FEW /HPF (NONE SEEN)
[2025-02-26 20:12] VITALS: BP 150/94; TEMP 98; O2SAT 100
== END 2025-02-26 20:13 | disposition home or self-care (01) ==
LOC: ER 16:55
DX: J44.1 Chronic obstructive pulmonary disease with (acute) exacerbation (principal); L93.0 Discoid lupus erythematosus; R94.31 Abnormal electrocardiogram [ECG] [EKG]; G89.29 Other chronic pain; M54.9 Dorsalgia, unspecified; Z87.891 Personal history of nicotine dependence; Z88.0 Allergy status to penicillin; Z88.1 Allergy status to other antibiotic agents; Z88.2 Allergy status to sulfonamides; Z88.3 Allergy status to other anti-infective agents; Z88.5 Allergy status to narcotic agent; Z88.6 Allergy status to analgesic agent; Z88.7 Allergy status to serum and vaccine; Z87.39 Personal history of other diseases of the musculoskeletal system and connective tissue
CPT/HCPCS: 36415; 71045; 83735; 84484; 85025; 87086; A4606; A4663; J3590

== ENCOUNTER 2025-03-19 17:45 | Emergency (ER) | payer BC, MEDICARE, OTHER ==
[~2025-03-19 17:45] MED LIST changes: +ALBU18HF2 INH; +ESOM20CA PO; +FLUT12AE20 INH
== END 2025-03-19 19:10 | disposition left against medical advice (07) ==
LOC: ER 17:45
DX: Z53.21 Procedure and treatment not carried out due to patient leaving prior to being seen by health care provider (principal)

== ENCOUNTER 2025-05-29 16:29 | Emergency (ER) | payer BC ==
[~2025-05-29] VITALS: Ht 170.2 cm; Wt 116.6 kg
[2025-05-29 16:32] VITALS: BP 161/102
[2025-05-29 17:11] LABS: PLATELET COUNT (AUTO) 208 K/uL (179-408); RED BLOOD CELL COUNT(AUTO) 5.12 MIL/uL (3.63-4.92); RED CELL DISTRIBUTION WIDTH 15.3 % (12.3-17.7); WHITE BLOOD COUNT (AUTO) 7.2 K/uL (3.8-11.8)
[2025-05-29] MEDS ORDERED: TRAMADOL HCL 50 MG TABLET ONE (17:16)
[2025-05-29] MEDS: TRAMADOL HCL 50 MG TABLET PO ONE (17:18)
[2025-05-29 17:19] LABS: CREATININE 1.0 mg/dL (0.6-1.3); SODIUM SERUM 145.0 mmol/L (136-145); UREA NITROGEN, BLOOD 14.0 mg/dL (7-18)
[2025-05-29 17:25] LABS: ASPARTATE AMINOTRANSFERASE 15.0 U/L (15-37); TOTAL PROTEIN, SERUM 6.4 g/dL (6.4-8.2)
[2025-05-29 18:02] LABS: *BILIRUBIN,URIN 1+ (NEGATIVE); *BLOOD, URINE NEGATIVE (NEGATIVE); *CLARITY,URINE CLEAR (CLEAR); *COLOR,URINE Orange (YELLOW); *KETONES,URINE TRACE (NEGATIVE); *PROTEIN,URINE 2+ (NEGATIVE); *UROBILINOGEN,URINE 4.0 E.U./dl (NORMAL); LEUKOCYTE ESTERASE ,URINE 3+ (NEGATIVE); NITRITE, URINE POSITIVE (NEGATIVE); UGLUCOSE TRACE (NEGATIVE)
[2025-05-29 18:07] LABS: *URINE HCG, QUAL NEGATIVE (NEGATIVE)
[2025-05-29 18:12] LABS: SQUAMOUS EPITHELIAL CELL,UR MODERATE /HPF (NONE SEEN)
[2025-05-29] MEDS ORDERED: NITR100C11 PO (18:13)
[2025-05-29] MEDS ORDERED: TRAM50TA2 PO (18:13)
[2025-05-29] MEDS: NITROFURANTOIN/NITROFURAN MAC 100 MG CAPSULE PO ONE (18:17)
[2025-05-29] MEDS ORDERED: NITROFURANTOIN/NITROFURAN MAC 100 MG CAPSULE PO ONE (18:17)
[2025-05-29 18:18] VITALS: BP 155/91; O2SAT 97
== END 2025-05-29 18:19 | disposition home or self-care (01) ==
LOC: ER 16:33
DX: N39.0 Urinary tract infection, site not specified (principal); G89.29 Other chronic pain; E66.01 Morbid (severe) obesity due to excess calories; J44.9 Chronic obstructive pulmonary disease, unspecified; Z79.51 Long term (current) use of inhaled steroids; Z87.891 Personal history of nicotine dependence; Z88.0 Allergy status to penicillin; Z88.1 Allergy status to other antibiotic agents; Z88.2 Allergy status to sulfonamides; Z88.3 Allergy status to other anti-infective agents; Z88.5 Allergy status to narcotic agent; Z88.6 Allergy status to analgesic agent; Z88.7 Allergy status to serum and vaccine; Z68.41 Body mass index [BMI] 40.0-44.9, adult
CPT/HCPCS: 36415; 84703; 85025; 87086; A4606; A4663

== ENCOUNTER 2025-06-20 09:50 | Emergency (ER) | payer BC, MEDICAID ==
[~2025-06-20] VITALS: Ht 170.2 cm; Wt 111.1 kg
[2025-06-20 09:55] VITALS: BP 177/106
[2025-06-20] MEDS: IV NORMAL SALINE 1000 ML BAG IV ONE (10:12)
[2025-06-20] MEDS ORDERED: TRAMADOL HCL 50 MG TABLET ONE ×2 (10:17→11:29)
[2025-06-20] MEDS: TRAMADOL HCL 50 MG TABLET PO ONE ×2 (10:17→11:32)
[2025-06-20] MEDS: IPRATROPIUM BROMIDE 0.5 MG/2.5 ML NEBU NEB ONE (10:17)
[2025-06-20] MEDS: ALBUTEROL SULFATE 2.5 MG/3 ML NEBU NEB ONE (10:17)
[2025-06-20 10:20] VITALS: O2SAT 95
[2025-06-20] MEDS ORDERED: IPRATROPIUM BROMIDE 0.5 MG/2.5 ML NEBU ONE (10:21)
[2025-06-20] MEDS ORDERED: ALBUTEROL SULFATE 2.5 MG/3 ML NEBU ONE (10:21)
[2025-06-20 10:44] VITALS: O2SAT 97
[2025-06-20 11:08] LABS: *BILIRUBIN,URIN NEGATIVE (NEGATIVE); *BLOOD, URINE NEGATIVE (NEGATIVE); *CLARITY,URINE CLEAR (CLEAR); *COLOR,URINE AMBER (YELLOW); *KETONES,URINE NEGATIVE (NEGATIVE); *PROTEIN,URINE NEGATIVE (NEGATIVE); *UROBILINOGEN,URINE 0.2 E.U./dl (NORMAL); LEUKOCYTE ESTERASE ,URINE NEGATIVE (NEGATIVE); NITRITE, URINE POSITIVE (NEGATIVE); UGLUCOSE NEGATIVE (NEGATIVE)
[2025-06-20] MEDS ORDERED: LEVO500T90 PO (11:24)
[2025-06-20] MEDS ORDERED: PRED20TA PO (11:24)
[2025-06-20 11:26] LABS: SQUAMOUS EPITHELIAL CELL,UR FEW /HPF (NONE SEEN)
[2025-06-20 11:33] VITALS: BP 164/94; O2SAT 97
[2025-06-20 11:38] LABS: *URINE HCG, QUAL NEGATIVE (NEGATIVE)
== END 2025-06-20 11:33 | disposition home or self-care (01) ==
LOC: ER 09:50
DX: J44.1 Chronic obstructive pulmonary disease with (acute) exacerbation (principal); M54.31 Sciatica, right side; N39.0 Urinary tract infection, site not specified; E66.01 Morbid (severe) obesity due to excess calories; Z79.51 Long term (current) use of inhaled steroids; Z79.52 Long term (current) use of systemic steroids; Z87.440 Personal history of urinary (tract) infections; Z87.891 Personal history of nicotine dependence; Z88.0 Allergy status to penicillin; Z88.1 Allergy status to other antibiotic agents; Z88.2 Allergy status to sulfonamides; Z88.3 Allergy status to other anti-infective agents; Z88.5 Allergy status to narcotic agent; Z88.6 Allergy status to analgesic agent; Z88.7 Allergy status to serum and vaccine; Z68.38 Body mass index [BMI] 38.0-38.9, adult; Z20.822 Contact with and (suspected) exposure to COVID-19
CPT/HCPCS: 84703; 87086; 93005; A4606; A4663; J3590

== ENCOUNTER 2025-07-05 11:09 | Emergency (ER) | payer BC, MEDICAID ==
[~2025-07-05] VITALS: Ht 167.6 cm; Wt 104.3 kg
[~2025-07-05 11:09] MED LIST changes: +ACET-3752 PO; -ACET325T53 PO; +LEVO-43 PO; +PRED20TA PO
[2025-07-05 11:15] VITALS: BP 166/87
[2025-07-05] MEDS ORDERED: TRAMADOL HCL 50 MG TABLET ONE (11:45)
[2025-07-05] MEDS: TRAMADOL HCL 50 MG TABLET PO ONE (11:50)
[2025-07-05] MEDS ORDERED: ALBUTEROL SULFATE 2.5 MG/3 ML NEBU ONE (11:55)
[2025-07-05] MEDS ORDERED: IPRATROPIUM BROMIDE 0.5 MG/2.5 ML NEBU ONE (11:55)
[2025-07-05 11:58] LABS: *BILIRUBIN,URIN 1+ (NEGATIVE); *BLOOD, URINE NEGATIVE (NEGATIVE); *CLARITY,URINE CLEAR (CLEAR); *COLOR,URINE YELLOW (YELLOW); *KETONES,URINE NEGATIVE (NEGATIVE); *PROTEIN,URINE 1+ (NEGATIVE); *UROBILINOGEN,URINE 0.2 E.U./dl (NORMAL); LEUKOCYTE ESTERASE ,URINE TRACE (NEGATIVE); NITRITE, URINE NEGATIVE (NEGATIVE); UGLUCOSE TRACE (NEGATIVE)
[2025-07-05 12:00] VITALS: O2SAT 96
[2025-07-05] MEDS: IPRATROPIUM BROMIDE 0.5 MG/2.5 ML NEBU NEB ONE (12:01)
[2025-07-05] MEDS: ALBUTEROL SULFATE 2.5 MG/3 ML NEBU NEB ONE (12:01)
[2025-07-05 12:11] VITALS: O2SAT 96; O2SAT 97
[2025-07-05 12:12] LABS: SQUAMOUS EPITHELIAL CELL,UR FEW /HPF (NONE SEEN); URINE AMORPHOUS URATE FEW /HPF
[2025-07-05 12:21] VITALS: BP 146/84; TEMP 98.8; O2SAT 97
== END 2025-07-05 12:24 | disposition home or self-care (01) ==
LOC: ER 11:09
DX: N39.0 Urinary tract infection, site not specified (principal); M54.9 Dorsalgia, unspecified; E66.01 Morbid (severe) obesity due to excess calories; G62.9 Polyneuropathy, unspecified; G89.29 Other chronic pain; J44.1 Chronic obstructive pulmonary disease with (acute) exacerbation; K21.9 Gastro-esophageal reflux disease without esophagitis; Z79.51 Long term (current) use of inhaled steroids; Z79.52 Long term (current) use of systemic steroids; Z87.891 Personal history of nicotine dependence; Z88.0 Allergy status to penicillin; Z88.1 Allergy status to other antibiotic agents; Z88.2 Allergy status to sulfonamides; Z88.3 Allergy status to other anti-infective agents; Z88.5 Allergy status to narcotic agent; Z88.6 Allergy status to analgesic agent; Z88.7 Allergy status to serum and vaccine
CPT/HCPCS: 87086; 94760; A4606; A4663; J3590

== ENCOUNTER 2025-07-07 20:10 | Emergency (ER) | payer BC ==
[~2025-07-07] VITALS: Ht 170.2 cm; Wt 108.0 kg
[2025-07-07 20:41] VITALS: BP 101/62
[2025-07-07] MEDS ORDERED: TRAMADOL HCL 50 MG TABLET ONE (22:27)
[2025-07-07] MEDS: TRAMADOL HCL 50 MG TABLET PO ONE (22:28)
[2025-07-07 22:35] LABS: PLATELET COUNT (AUTO) 233 K/uL (179-408); RED BLOOD CELL COUNT(AUTO) 5.05 MIL/uL (3.63-4.92); RED CELL DISTRIBUTION WIDTH 15.2 % (12.3-17.7); WHITE BLOOD COUNT (AUTO) 9.9 K/uL (3.8-11.8)
[2025-07-07 22:41] LABS: CREATININE 1.1 mg/dL (0.6-1.3); SODIUM SERUM 142.0 mmol/L (136-145); UREA NITROGEN, BLOOD 13.0 mg/dL (7-18)
[2025-07-07 22:47] LABS: ASPARTATE AMINOTRANSFERASE 41.0 U/L (15-37); TOTAL PROTEIN, SERUM 6.7 g/dL (6.4-8.2)
[2025-07-07 22:50] LABS: *BILIRUBIN,URIN NEGATIVE (NEGATIVE); *BLOOD, URINE NEGATIVE (NEGATIVE); *CLARITY,URINE CLEAR (CLEAR); *COLOR,URINE YELLOW (YELLOW); *KETONES,URINE TRACE (NEGATIVE); *PROTEIN,URINE NEGATIVE (NEGATIVE); *UROBILINOGEN,URINE 0.2 E.U./dl (NORMAL); LEUKOCYTE ESTERASE ,URINE 2+ (NEGATIVE); NITRITE, URINE NEGATIVE (NEGATIVE); UGLUCOSE TRACE (NEGATIVE)
[2025-07-07 23:07] LABS: SQUAMOUS EPITHELIAL CELL,UR MODERATE /HPF (NONE SEEN)
[2025-07-07] MEDS ORDERED: FOSFOMYCIN TROMETHAMINE 3 GM PACKET ONE (23:17)
[2025-07-07] MEDS: FOSFOMYCIN TROMETHAMINE 3 GM PACKET PO ONE (23:18)
[2025-07-08 00:01] VITALS: BP 101/62; TEMP 98; O2SAT 96
== END 2025-07-08 00:05 | disposition home or self-care (01) ==
LOC: ER 20:10
DX: R05.9 Cough, unspecified (principal); M54.9 Dorsalgia, unspecified; R10.A0 Flank pain, unspecified side; E66.01 Morbid (severe) obesity due to excess calories; G89.29 Other chronic pain; J44.9 Chronic obstructive pulmonary disease, unspecified; N39.0 Urinary tract infection, site not specified; Z79.51 Long term (current) use of inhaled steroids; Z79.52 Long term (current) use of systemic steroids; Z87.891 Personal history of nicotine dependence; Z88.0 Allergy status to penicillin; Z88.1 Allergy status to other antibiotic agents; Z88.2 Allergy status to sulfonamides; Z88.3 Allergy status to other anti-infective agents; Z88.5 Allergy status to narcotic agent; Z88.6 Allergy status to analgesic agent; Z88.7 Allergy status to serum and vaccine; Z20.822 Contact with and (suspected) exposure to COVID-19
CPT/HCPCS: 36415; 71045; 83735; 85025; 86140; 87086; A4606; A4663

== ENCOUNTER 2025-07-14 19:04 | Emergency (ER) | payer BC ==
[~2025-07-14] VITALS: Ht 167.6 cm; Wt 104.3 kg
[2025-07-14 19:08] VITALS: BP 159/86; O2SAT 98
== END 2025-07-14 21:00 | disposition left against medical advice (07) ==
LOC: ER 19:13
DX: G89.29 Other chronic pain (principal); Z76.0 Encounter for issue of repeat prescription; J44.9 Chronic obstructive pulmonary disease, unspecified; E66.01 Morbid (severe) obesity due to excess calories; Z79.51 Long term (current) use of inhaled steroids; Z79.52 Long term (current) use of systemic steroids; Z87.891 Personal history of nicotine dependence; Z88.0 Allergy status to penicillin; Z88.1 Allergy status to other antibiotic agents; Z88.2 Allergy status to sulfonamides; Z88.3 Allergy status to other anti-infective agents; Z88.5 Allergy status to narcotic agent; Z88.6 Allergy status to analgesic agent; Z88.7 Allergy status to serum and vaccine; Z68.37 Body mass index [BMI] 37.0-37.9, adult
CPT/HCPCS: A4606; A4663